=== PATIENT | male | born 1950 | race Caucasian/White ===

== ENCOUNTER 2020-02-12 05:10 | Emergency (ER) | payer MEDICARE, SELFPAY ==
[2020-02-12 05:15] VITALS: BP 154/71; PULSE 78; RESP 18; TEMP 36.4; O2SAT 99
[2020-02-12] MEDS: ONDANSETRON INJ 4 MG/2 ML VIAL (05:26)
--- NOTE | 2020-02-12 05:28 | ECG_ITS ---
Measurements Intervals [place] Rate: 77 P: 71 GA: 155 QRS: 86 QRSD: 122 T: 78 QT: 413 QTc: 467 Interpretive Statements SINUS RHYTHM INTRAVENTRICULAR CONDUCTION DELAY DELAYED PRECORDIAL R/S TRANSITION BASELINE ARTIFACT- I, II, III, AVR, AVL, AVF, V1, V3-V6 BORDERLINE ECG Electronically Signed On 02-12-2020 7:11:34 CDT by Delroy Thomas D.O.
[2020-02-12] MEDS: MECLIZINE HCL 25 MG TABLET PO (05:36)
[2020-02-12] MEDS: SODIUM CHLORIDE 0.9% IV 1,000 ML 999 ML IV CONT (05:36)
--- NOTE | 2020-02-12 05:52 | ED.DIZZY ---
HPI - Dizziness General Chief Complaint: Dizziness Stated Complaint: dizzy Time Seen by Provider: 02/12/20 05:14 History of Present Illness HPI Narrative: Patient 69-year-old male who presents ER with dizziness. Began early in the evening and has progressed. Woke up recently and was clammy and nauseated. He has had some worsening of his dizziness whenever he will move his head or change positions. No sinus congestion/sore throat/cough. Has not had similar symptoms previously. No chest pain or chest pressure. No weakness in arm or leg. Patient was somewhat falling to his left when walking earlier this evening per . Related Data Home Medications Medication Instructions Recorded Confirmed lisinopril 20 1 tablet PO DAILY 10/09/19 10/09/19 mg-hydrochlorothiazide 25 mg tablet Allergies Allergy/AdvReac Type Severity Reaction Status Date / Time No Known Allergies Allergy Verified 11/25/19 10:16 Review of Systems Review of Systems: All systems reviewed & are unremarkable except as noted in HPI and below Constitutional: Constitutional: Denies chills, Denies fever(s) and Denies weakness ENT: Reports vertigo, Denies nasal congestion and Denies sore throat Gastrointestinal: Gastrointestinal: Denies abdominal pain, Reports nausea and Denies vomiting PMFSH Social History Social History (System 11/25/19 @ 10:16 by Romana Evans) Smoking packs per day: 1 Smoking cigarettes per day: 20.0 Years smoked: 40 Smoking pack-years: 40.00 Smoking status: Former smoker Tobacco type: cigarettes Second hand tobacco smoke exposure: Yes Smoking end date: 06/17/17 Alcohol intake: current Drinks per week: 18 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 HEAD: Normocephalic, atraumatic. EYES: PERRL and EOMI. left gaze nystagmus. ENT: Mucous membranes moist. No cerumen impaction, small amount of fluid behind TMs bilaterally. CHEST: Clear to auscultation. No respiratory distress. HEART: Regular rate and rhythm. No murmur heard. Normal peripheral pulses. EXTREMITIES: Normal range of motion. No edema. SKIN: Warm, dry, no rash. NEURO: Alert and oriented x3. Course Course Emergency Course: Patient ambulated with a guarded gait in the ER traveling approximately 30 feet. Reports he is feeling better. Dizziness fatigues with positional changes and does totally greta when laying still. Consistent with BPPV. Discussed treatment for home. Discussed he should not be driving. Discussed he should just be lying still at home and resting while his symptoms subside. Vital Signs Vital signs: Vital Signs Temperature 97.6 F 02/12/20 05:15 Pulse Rate 78 02/12/20 05:15 Respiratory Rate 18 02/12/20 05:15 Blood Pressure 154/71 H 02/12/20 05:15 Pulse Oximetry 99 02/12/20 05:15 Temperature 97.6 F 02/12/20 05:15 Pulse Rate 78 02/12/20 05:15 Respiratory Rate 18 02/12/20 05:15 Blood Pressure 154/71 H 02/12/20 05:15 Pulse Oximetry 99 02/12/20 05:15 Discharge Plan Discharge Clinical Impression: Benign paroxysmal positional vertigo Patient Disposition: Home, Self-Care Condition: Stable Instructions: Benign Paroxysmal Positional Vertigo (ED) Additional Instructions: Return to the ER if you fall, you have severe persistent dizziness that is not improving with medications, you lose consciousness, you have focal weakness or numbness to an arm or leg. Prescriptions: New meclizine 25 mg tablet 25 mg PO TID PRN (Reason: motion sickness) Qty: 14 RF: 0 diazepam [Valium] 2 mg tablet 2 mg PO BID PRN (Reason: dizziness) Qty: 6 RF: 0 No Action lisinopril-hydrochlorothiazide 20-25 mg tablet 1 tablet PO DAILY RF: 0 lisinopril-hydrochlorothiazide 20-25 mg tablet 1 tablet PO DAILY Qty: 90 RF: 0
[2020-02-12 07:06] VITALS: BP 148/87; PULSE 72; RESP 16; TEMP 36.7; O2SAT 98
== END 2020-02-12 07:07 | disposition home or self-care (01) ==
PROVIDERS: Emergency Provider Emergency Medicine
DX: H81.10 Benign paroxysmal vertigo, unspecified ear (principal); Z87.891 Personal history of nicotine dependence; I45.9 Conduction disorder, unspecified
CPT/HCPCS: 93005; 96361; 96374; 96375; 99284; A9270; J2405; J3360; J7030

== ENCOUNTER → 2020-03-31 13:49 | Outpatient (CLI) | payer MEDICARE, SELFPAY ==
--- NOTE | ~2020-03-31 | CT_ITS ---
EXAMINATION:CT lung screening DATE: 03/31/2020 14:06 INDICATION: Personal history of tobacco dependence. Smoker who quit 2 years ago with 40 pack year his tory. TECHNIQUE: Computed tomography (CT) of the chest was performed without intravenous contrast. Automate d exposure control and iterative reconstruction technique were employed. The dose-length product (DLP ) was 168.23 mGy-cm. COMPARISON: None. FINDINGS: There is mild emphysema. There is mild scarring in paraspinal right lower lobe. There is mi ld atelectasis bilaterally. A calcified left lung nodule and calcified left hilar lymph nodes are con sistent with old granulomatous disease. There are a few nodules scattered in the lungs measuring up t o 5 mm in right lower lobe. No pleural effusion. The heart size is normal. There are coronary artery calcifications. No pericardial effusion. There is diffuse hepatic steatosis. There is mild thoracic s pondylosis. IMPRESSION: 1. Lung-RADS category 2: Benign appearance or behavior. Continue annual screening with noncontrast lo w-dose chest CT in 12 months. Reviewed, dictated and finalized at [facility]. IMPRESSION: 1. Lung-RADS category 2: Benign appearance or behavior. Continue annual screeni ng with noncontrast low-dose chest CT in 12 months.
== END ==
PROVIDERS: Visit Provider Family Medicine
DX: Z12.2 Encounter for screening for malignant neoplasm of respiratory organs (principal); Z87.891 Personal history of nicotine dependence; C79.51 Secondary malignant neoplasm of bone
CPT/HCPCS: G0297

== ENCOUNTER 2020-05-11 06:42 | Outpatient (NON) | payer MEDICARE, SELFPAY ==
[2020-05-11 11:27] LABS: Influenza Control Positive
[2020-05-13 21:25] LABS: SARS-CoV-2 RNA PCR Negative
== END 2020-05-11 06:43 ==
LOC: ANHCOVIDDT 07:03
PROVIDERS: PCP Family Medicine; Visit Provider Family Medicine
DX: R50.9 Fever, unspecified (principal); Z20.828 Contact with and (suspected) exposure to other viral communicable diseases; R53.83 Other fatigue
CPT/HCPCS: 87635; 87804; C9803; U0003

== ENCOUNTER 2021-03-25 04:55 | Emergency (ER) | payer MEDICARE, SELFPAY ==
[2021-03-25 05:04] VITALS: BP 156/78; PULSE 71; RESP 14; TEMP 36.6; O2SAT 97
[2021-03-25] MEDS: SODIUM CHLORIDE 0.9% IV 1,000 ML 999 ML IV CONT (05:39)
[2021-03-25] MEDS: MECLIZINE HCL 25 MG TABLET PO (05:40)
[2021-03-25] MEDS: PROCHLORPERAZINE EDISYLATE 10 MG/2 ML VIAL IV PUSH (05:41)
[2021-03-25 05:48] LABS: Basophils Percent Auto 0.4 % (0.2-1.2); Eosinophils Absolute Auto 0.1 K/mm3 (0-0.3); Eosinophils Percent Auto 1.1 % (0-4.4); Hematocrit 37.8 % (42.0-52.0); Hemoglobin 12.7 g/dL (14.0-18.0); Immature Granulocyte Absolute 0.05 K/mm3 (0.00-0.031); Immature Granulocyte Percent A 0.9 % (0-0.5); Lymphocytes Absolute Auto 1.41 K/mm3 (0.9-3.2); Lymphocytes Percent Auto 25.4 % (18.3-44.2); Mean Corpuscular HGB Conc 33.6 g/dl (32-36); Mean Corpuscular Hemoglobin 31.4 pg (26-34); Mean Corpuscular Volume 93.6 fl (80-100); Mean Platelet Volume 10.1 fl (7.4-10.4); Monocytes Absolute Auto 0.6 K/mm3 (0.1-0.6); Monocytes Percent Auto 11.2 % (2.6-8.5); Neutrophils Absolute Auto 3.4 K/mm3 (1.3-6.7); Platelet Count Result 247 k/mm3 (150-375); Red Blood Count 4.04 M/mm3 (4.6-6.20); Red Cell Distribution Width 13.6 % (11.5-14.5); White Blood Count 5.6 K/mm3 (4.5-10.0)
--- NOTE | 2021-03-25 05:56 | ED.GENADULT ---
HPI - General Adult General Chief complaint: Dizziness Stated complaint: Dizzy, vomiting Time Seen by Provider: 03/25/21 05:14 History of Present Illness HPI narrative: Patient 70-year-old gentleman who presents the emergency department with chief complaint of dizziness. Patient reports he has had prior history of vertigo in the past and reports that this morning he got up and felt as though the room was spinning felt nauseated and vomited and had some loose stool earlier in the day. The patient states that currently he feels as though the room is still slightly spinning but does feel better as he is laying on the stretcher. Patient reports he still feels nauseated. Patient reports this feels similar to whenever he had vertigo in the past except that time he did not vomit. Patient denies chest pain denies syncope denies shortness of breath. Related Data Home Medications Medication Instructions Recorded Confirmed ibuprofen 800 mg tablet 800 mg PO Q6H 01/26/21 03/24/21 Allergies Allergy/AdvReac Type Severity Reaction Status Date / Time No Known Allergies Allergy Verified 03/24/21 09:33 Review of Systems Review of Systems: A 10 system review of systems was completed on the patient and is negative except for what is stated in the HPI. Nursing and ancillary documentation was reviewed. [facility] Past Medical History Medical History COPD (chronic obstructive pulmonary disease) GERD without esophagitis Hyperlipemia Hypertension Vertigo Surgical History Surgical History No pertinent past surgical history Family History Family History Other Hypertension Social History Social History Smoking packs per day: 1 Smoking cigarettes per day: 20.0 Years smoked: 40 Smoking pack-years: 40.00 Smoking status: Former smoker Tobacco type: cigarettes Second hand tobacco smoke exposure: Yes Smoking end date: 04/03/19 Alcohol intake: current Drinks per week: 18 Alcohol use details: beer 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 HEAD: Normocephalic, atraumatic. EYES: PERRLA and EOMI. ENT: Nares clear, no rhinorrhea or epistaxis. Mucous membranes moist. NECK: Supple. CHEST: Clear to auscultation. No respiratory distress. HEART: Regular rate and rhythm. No murmur heard. Normal peripheral pulses. ABDOMEN: Soft, nontender, nondistended, normal active bowel sounds. EXTREMITIES: Normal range of motion. No edema. SKIN: Warm, dry, no rash. NEURO: No focal deficits. Alert and oriented x3. PSYCH: Normal mood and affect. Course Vital Signs Vital signs: Vital Signs Temperature 36.6 C 03/25/21 05:04 Pulse Rate 71 03/25/21 05:04 Respiratory Rate 14 03/25/21 05:04 Blood Pressure 156/78 H 03/25/21 05:04 Pulse Oximetry 97 03/25/21 05:04 Temperature 36.6 C 03/25/21 05:04 Pulse Rate 71 03/25/21 05:04 Respiratory Rate 14 03/25/21 05:04 Blood Pressure 156/78 H 03/25/21 05:04 Pulse Oximetry 97 03/25/21 05:04 Medical Decision Making Vital Signs Vital Signs: Vital Signs Temperature 36.6 C 03/25/21 05:04 Pulse Rate 71 03/25/21 05:04 Respiratory Rate 14 03/25/21 05:04 Blood Pressure 156/78 H 03/25/21 05:04 Pulse Oximetry 97 03/25/21 05:04 Temperature 36.6 C 03/25/21 05:04 Pulse Rate 71 03/25/21 05:04 Respiratory Rate 14 03/25/21 05:04 Blood Pressure 156/78 H 03/25/21 05:04 Pulse Oximetry 97 03/25/21 05:04 Lab Data Result diagrams: 03/25/21 05:37 03/25/21 05:37 Labs: Lab Results 03/25/21 03/25/21 Range/U
[2021-03-25 06:08] LABS: Anion Gap 7 mmol/L (8-16); Blood Urea Nitrogen 20 mg/dL (9-20); Calcium 9.2 mg/dL (8.4-10.2); Carbon Dioxide 29 mmol/L (22-30); Chloride 105 mmol/L (98-107); Estimated CRCL calculation 79 ml/min; Estimated Glomerular Filt Rate > 60; Glucose 122 mg/dL (65-110); Potassium 3.8 mmol/L (3.4-5.0); Sodium 141 mmol/L (137-145)
[2021-03-25 06:37] VITALS: BP 143/76; PULSE 76; RESP 18; O2SAT 97
== END 2021-03-25 06:39 | disposition home or self-care (01) ==
LOC: ANHED 05:59
PROVIDERS: Emergency Provider Emergency Medicine; PCP Family Medicine
DX: H81.10 Benign paroxysmal vertigo, unspecified ear (principal); E78.5 Hyperlipidemia, unspecified; J44.9 Chronic obstructive pulmonary disease, unspecified; I10 Essential (primary) hypertension; Z87.891 Personal history of nicotine dependence
CPT/HCPCS: 36415; 80048; 85025; 96361; 96374; 99284; A9270; J0780; J7030

== ENCOUNTER 2021-09-08 01:23 | Day surgery (SDC) | payer MEDICARE, SELFPAY ==
[2021-09-04 09:04] VITALS: BMI 30.2
[2021-09-08 09:59] VITALS: BP 142/85; PULSE 83; RESP 18; TEMP 36.7; O2SAT 96; BMI 28.4
--- NOTE | 2021-09-08 10:04 | WPDANESEPPF ---
Anes - Initial Pre Proc Eval Procedure: Operation Date: 09/08/21 10:30 Proposed Procedures p Screening Colonoscopy - Emanuel Anand MD Date/Time: 09/08/21 10:04 Surgeon: Emanuel Anand MD Pre Op Diagnosis: neoplasm screening Patient Data Age: 70 Gender: M Height: 1.78 m Weight: 90 kg Last Vital Signs Temp 36.7 C 09/08/21 09:59 Pulse 83 09/08/21 09:59 Resp 18 09/08/21 09:59 BP 142/85 H 09/08/21 09:59 Pulse Ox 96 09/08/21 09:59 Allergies Allergy/AdvReac Type Severity Reaction Status Date / Time No Known Allergies Allergy Verified 09/04/21 09:02 Home Medications Medication Instructions Recorded Confirmed Type ibuprofen 800 mg tablet 800 mg PO Q6H 01/26/21 09/04/21 History albuterol sulfate 90 mcg/actuation 1 puff INHALATION Q4H PRN #6.7 gm 02/17/21 09/04/21 Rx aerosol inhaler fluticasone 100 mcg-salmeterol 50 1 inh INHALATION Q12H #60 ea 03/24/21 09/04/21 Rx mcg/dose blistr powdr for inhalation meclizine 25 mg PO TID PRN #30 tablet 03/25/21 09/04/21 Rx ondansetron 4 mg PO Q8H PRN #10 tablet 03/25/21 09/04/21 Rx atorvastatin 10 mg tablet 10 mg PO DAILY #90 tablet 08/21/21 09/04/21 Rx lisinopril 20 1 tablet PO DAILY #90 tablet 08/23/21 09/04/21 Rx mg-hydrochlorothiazide 25 mg tablet Patient hx anesthesia problems: none Family hx anesthesia problems: none Results Review: All pre-operative results and documents have been reviewed as part of the pre-operative evaluation. REPLACED BY [facility] Past Medical History Medical History COPD (chronic obstructive pulmonary disease) GERD without esophagitis Hyperlipemia Hypertension Vertigo Surgical History Surgical History No pertinent past surgical history Family History Family History Other Hypertension Social History Social History Smoking packs per day: 1 Smoking cigarettes per day: 20.0 Years smoked: 40 Smoking pack-years: 40.00 Smoking status: Former smoker Tobacco type: cigarettes Second hand tobacco smoke exposure: Yes Smoking end date: 04/03/19 Alcohol intake: current Drinks per week: 12 Alcohol use details: beer Substance use: never Substance use type: does not use Living arrangements: with family 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 Informed Consent: The patient's anesthetic plan and its attendant risks and benefits were discussed with the patient/family/POA. Questions were solicited and answers provided to the satisfaction of the patient/family/POA.
--- NOTE | 2021-09-08 10:11 | WPDGICN ---
Assessment and Plan Assessment and plan (1) Encounter for screening colonoscopy: Code(s): Z12.11 - Encounter for screening for malignant neoplasm of colon Status: Acute Assessment and Plan: patient presents for screening colonoscopy. He appears to be at average risk for colon polyps. Further recommendations will be given after endoscopy. GI Consult Note Consult date/time: 09/08/21 10:11 HPI: Thomas Eisenberg is a 70 year old male Presents for screening colonoscopy. Patient's current weight appetite bowel movements are normal. He denies abdominal pain. He has had no bleeding. Patient's last colonoscopy 10 years [address] performed [address] Dr[address] Meyers was reported to show hemorrhoids. Patient denies any significant family history of colon polyps nor cancer. Review of Systems Review of Systems: All systems reviewed & are unremarkable except as noted in HPI and below PMFSH Past Medical History Medical History COPD (chronic obstructive pulmonary disease) GERD without esophagitis Hyperlipemia Hypertension Vertigo Surgical History Surgical History No pertinent past surgical history Family History Family History Other Hypertension Social History Social History Smoking packs per day: 1 Smoking cigarettes per day: 20.0 Years smoked: 40 Smoking pack-years: 40.00 Smoking status: Former smoker Tobacco type: cigarettes Second hand tobacco smoke exposure: Yes Smoking end date: 04/03/19 Alcohol intake: current Drinks per week: 12 Alcohol use details: beer Substance use: never Substance use type: does not use Living arrangements: with family 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 Gender identity (if verbalized by the patient): Male Spiritual care concerns: No Meds Home Medications and Allergies Home Medications Medication Instructions Recorded Confirmed Type ibuprofen 800 mg tablet 800 mg PO Q6H 01/26/21 09/04/21 History albuterol sulfate 90 mcg/actuation 1 puff INHALATION Q4H PRN #6.7 gm 02/17/21 09/04/21 Rx aerosol inhaler fluticasone 100 mcg-salmeterol 50 1 inh INHALATION Q12H #60 ea 03/24/21 09/04/21 Rx mcg/dose blistr powdr for inhalation meclizine 25 mg PO TID PRN #30 tablet 03/25/21 09/04/21 Rx ondansetron 4 mg PO Q8H PRN #10 tablet 03/25/21 09/04/21 Rx atorvastatin 10 mg tablet 10 mg PO DAILY #90 tablet 08/21/21 09/04/21 Rx lisinopril 20 1 tablet PO DAILY #90 tablet 08/23/21 09/04/21 Rx mg-hydrochlorothiazide 25 mg tablet Allergies Allergy/AdvReac Type Severity Reaction Status Date / Time No Known Allergies Allergy Verified 09/04/21 09:02 Vital Signs Vital Signs - 24 hr 09/08/21 09:59 Temperature 98.1 F Pulse Rate 83 Respiratory Rate 18 Blood Pressure 142/85 H Pulse Oximetry 96 Exam Narrative: Physical exam reveals patient to be alert. Vital signs stable. HEENT exam is unremarkable. Patient is anicteric. Lungs are clear to auscultation and percussion. Heart is without murmur or extra sounds. Abdominal exam bowel sounds are present soft nontender with no organomegaly. Digital external rectal exam is normal
[2021-09-08] MEDS: LACTATED RINGERS 1,000 ML 150 ML IV CONT (10:14)
[2021-09-08 11:01] VITALS: BP 104/67; PULSE 81; RESP 20; O2SAT 97
[2021-09-08 11:11] VITALS: BP 108/73; PULSE 78; RESP 22; O2SAT 98
[2021-09-08 11:21] VITALS: BP 121/75; PULSE 67; RESP 21; O2SAT 100
== END 2021-09-08 11:27 | disposition home or self-care (01) ==
PROVIDERS: PCP Family Medicine; Visit Provider Internal Medicine Gastroenterology
PROC: 0DJD8ZZ Inspection of Lower Intestinal Tract, Via Natural or Artificial Opening Endoscopic (ICD-10-PCS; CPT 45378; principal; 2021-09-08 10:30)
DX: Z12.11 Encounter for screening for malignant neoplasm of colon (principal); K64.8 Other hemorrhoids; K57.30 Diverticulosis of large intestine without perforation or abscess without bleeding; J44.9 Chronic obstructive pulmonary disease, unspecified; K21.9 Gastro-esophageal reflux disease without esophagitis; I10 Essential (primary) hypertension; E78.5 Hyperlipidemia, unspecified; Z87.891 Personal history of nicotine dependence; Z79.51 Long term (current) use of inhaled steroids
CPT/HCPCS: G0121; J2704; J7120

== ENCOUNTER 2021-09-12 17:54 | Emergency (ER) | payer MEDICARE, SELFPAY ==
[2021-09-12] VITALS (21 sets, daily range): BP systolic 101–142; BP diastolic 64–94; PULSE 84–108; RESP 16–18; TEMP 36.4; O2SAT 93–97
--- NOTE | ~2021-09-12 | CT_ITS ---
EXAMINATION: CT abdomen pelvis w con DATE: 09/12/2021 19:57 INDICATION: Abdominal pain, nausea, vomiting, diarrhea started today TECHNIQUE: Computed tomography (CT) of the abdomen and pelvis was performed with 100 CC Omnipaque 350 intravenous contrast. Automated exposure control and iterative reconstruction technique were employe d. Exam dose: 730.94 mGy-cm total exam DLP. COMPARISON: None. FINDINGS: The lung bases are clear of infiltrate or consolidation. Normal heart size. Coronary artery calcification. No pericardial or pleural effusion. Diffuse hepatic steatosis. No hepatic, splenic, pancreatic, adrenal space-occupying mass lesion. No b ile duct or pancreatic duct dilatation. An 11 mm posterior upper pole left renal cyst Approximately 11.5 x 14 mm hypoenhancing exophytic lesion with attenuation of 82 Hounsfield units dwain ng the medial aspect of the mid right kidney. Similar approximately 2 cm hypoenhancing exophytic mass with attenuation of 58 Hounsfield units along the medial aspect of the lower pole of the right kidne y. Pinpoint nonobstructing lower pole renal calculus. There is atherosclerotic calcification of the abdominal aorta and branches but no abdominal aortic an eurysm. No intraperitoneal or retroperitoneal or pelvic mass lesion or adenopathy or ascites. Prostate enlargement and numerous prostate calcifications. There is mild to moderate diffuse thickeni ng of the urinary bladder wall. Diverticulosis of left and right colon; no CT evidence of diverticulitis. Normal appendix. No bowel obstruction, bowel wall thickening, pneumatosis or intraperitoneal free air. Scattered small bowel and colonic fluid levels, consistent with clinical complaint of diarrhea, possi prisca due to enterocolitis or mild adynamic ileus. Diffuse idiopathic skeletal hyperostosis of the thoracic spine. Moderate degenerative disc disease at L5-S1. No suspicious osteolytic or osteoblastic lesions are noted. IMPRESSION: Scattered small and large bowel fluid levels, which may be due to enterocolitis or mild a dynamic ileus Diverticulosis of the colon; no CT evidence of diverticulitis Normal appendix Indeterminate circumscribed exophytic 11.5 x 14 and 2 cm lesions of right kidney Similar approximately 17 mm indeterminate hypoenhancing lesion of the medial mid left kidney, with at tenuation of approximately 67 Hounsfield units 10 mm hypoenhancing lesion of the lower pole left kidney Consider MR imaging of the kidneys or follow-up CT renal imaging in 6 months Pinpoint nonobstructing lower pole right renal calculus No ureteral calculus or hydroureteronephrosis Hepatic steatosis Reviewed, dictated and finalized at [facility]. Reviewed, dictated and finalized at [facility]. IMPRESSION: Scattered small and large bowel fluid levels, which may be due to e nterocolitis or mild adynamic ileus Diverticulosis of the colon; no CT evidence of diverticulitis Normal appendix Indeterminate circumscribed exophytic 11.5 x 14 and 2 cm lesions of right kidne y Similar approximately 17 mm indeterminate hypoenhancing lesion of the medial mi d left kidney, with attenuation of approximately 67 Hounsfield units 10 mm hypoenhancing lesion of the lower pole left kidney Consider MR imaging of the kidneys or follow-up CT renal imaging in 6 months Pinpoint nonobstructing lower pole right renal calculus No ureteral calculus or hydroureteronephrosis Hepatic steatosis
[2021-09-12 18:17] LABS: Basophils Percent Auto 0.4 % (0.2-1.2); Eosinophils Percent Auto 0.2 % (0-4.4); Hematocrit 41.9 % (42.0-52.0); Hemoglobin 14.2 g/dL (14.0-18.0); Immature Granulocyte Absolute 0.05 K/mm3 (0.00-0.031); Immature Granulocyte Percent A 0.5 % (0-0.5); Lymphocytes Absolute Auto 0.86 K/mm3 (0.9-3.2); Lymphocytes Percent Auto 8.4 % (18.3-44.2); Mean Corpuscular HGB Conc 33.9 g/dl (32-36); Mean Corpuscular Hemoglobin 32.2 pg (26-34); Mean Platelet Volume 10.1 fl (7.4-10.4); Monocytes Absolute Auto 0.7 K/mm3 (0.1-0.6); Monocytes Percent Auto 6.8 % (2.6-8.5); Neutrophils Absolute Auto 8.6 K/mm3 (1.3-6.7); Neutrophils Percent Auto 83.7 % (45.5-73.1); Platelet Count Result 261 k/mm3 (150-375); Red Blood Count 4.41 M/mm3 (4.6-6.20); Red Cell Distribution Width 13.9 % (11.5-14.5); White Blood Count 10.3 K/mm3 (4.5-10.0)
[2021-09-12 18:51] LABS: Appearance Urine Clear (Clear); Bilirubin Urine 1+ (Negative); Blood Urine Negative (Negative); Color Urine Yellow (Yellow); Glucose Urine UA Negative (Negative); Ketones Urine Trace mg/dL (Negative); Leukocyte Esterase Ur Negative LEU/UL (Negative); Nitrate Urine Negative (Negative); Protein Urine 1+ mg/dL (Negative); Specific Grav Ur >= 1.030 (1.001-1.035); Urobilinogen Urine 0.2 mg/dL (<2.0); pH Urine 5.5 (5.0-9.0)
[2021-09-12 18:59] LABS: Alanine Aminotransferase 28 U/L (4-50); Albumin Level 4.4 g/dL (3.5-5.1); Alkaline Phosphatase 86 U/L (38-126); Anion Gap 9 mmol/L (8-16); Aspartate Amino Transferase 33 U/L (17-59); Bilirubin,Total 0.8 mg/dL (0.2-1.3); Blood Urea Nitrogen 31 mg/dL (9-20); Calcium 8.2 mg/dL (8.4-10.2); Carbon Dioxide 24 mmol/L (22-30); Chloride 102 mmol/L (98-107); Estimated CRCL calculation 64 ml/min; Estimated Glomerular Filt Rate > 60; Glucose 117 mg/dL (65-110); Lipase 40 U/L (23-300); Potassium 3.6 mmol/L (3.4-5.0); Sodium 135 mmol/L (137-145)
--- NOTE | 2021-09-12 18:59 | ED.NAVMDI ---
HPI - Nausea/Vomiting/Diarrhea General Chief complaint: Nausea/Vomiting/Diarrhea <Lakeshia Phan PA-C - Last Filed: 09/13/21 01:34> Stated complaint: vomiting, diarrhea <CECILIO Sagastume Last Filed: 09/13/21 01:34> Time Seen by Provider: 09/12/21 18:38 <Lakeshia Phan PA-C - Last Filed: 09/13/21 01:34> Source: patient <CECILIO Sagastume Last Filed: 09/13/21 01:34> Mode of arrival: ambulatory <CECILIO Sagastume Last Filed: 09/13/21 01:34> Limitations: no limitations <CECILIO Sagastume Last Filed: 09/13/21 01:34> History of Present Illness HPI Narrative: Patient is a 70-year-old male who presents to the ED with report of nausea, vomiting, diarrhea. Patient reports he cooked ribs last night at home around 8 PM and does not think they were cooked all the way through. Around 4 AM this morning, he developed nausea and vomiting and has since had several episodes, in addition to frequent diarrhea. He states he has been unable to keep any fluid down. He has not tried eating today. He also reports having abdominal bloating and distension and mild oliguria, but denies any fevers, chills, hematemesis, rectal bleeding, chest pain, SOB, dysuria, hematuria. Patient had a colonoscopy on Saturday. He states he has been feeling well since then until these sx's began. <Lakeshia Phan PA-C - Last Filed: 09/13/21 01:34> Related Data Home medications: Home Medications Medication Instructions Recorded Confirmed ibuprofen 800 mg tablet 800 mg PO Q6H 01/26/21 09/04/21 <CECILIO Sagastume Last Filed: 09/13/21 01:34> Allergies/Adverse reactions: Allergies Allergy/AdvReac Type Severity Reaction Status Date / Time No Known Allergies Allergy Verified 09/04/21 09:02 <CECILIO Sagastume Last Filed: 09/13/21 01:34> Review of Systems Review of Systems: CONSTITUTIONAL: Denies fever, chills, or sweats. CARDIOVASCULAR: Denies chest pain. RESPIRATORY: Denies dyspnea. GASTROINTESTINAL: Reports abdominal pain/distension/bloating, nausea, vomiting, and diarrhea. Denies hematemesis, rectal bleeding. GENITOURINARY: Reports oliguria. Denies dysuria or hematuria. MUSCULOSKELETAL: Denies back pain, joint pain, or myalgia. NEUROLOGIC: Denies headache, numbness, or weakness. <Lakeshia Phan PA-C - Last Filed: 09/13/21 01:34> All systems reviewed & are unremarkable except as noted in HPI and below <Lakeshia Phan PA-C - Last Filed: 09/13/21 01:34> [facility] Past Medical History Medical History: Medical History COPD (chronic obstructive pulmonary disease) GERD without esophagitis Hyperlipemia Hypertension Vertigo <Lakeshia hPan PA-C - Last Filed: 09/13/21 01:34> Surgical History Surgical History: Surgical History No pertinent past surgical history <Lakeshia Phan PA-C - Last Filed: 09/13/21 01:34> Family History Family History: Family History Other Hypertension <Lakeshia Phan PA-C - Last Filed: 09/13/21 01:34> Social History Social History: Social History Smoking packs per day: 1 Smoking cigarettes per day: 20.0 Years smoked: 40 Smoking pack-years: 40.00 Smoking status: Former smoker Tobacco type: cigarettes Second hand tobacco smoke exposure: Yes Smoking end date: 04/03/19 Alcohol intake: current Drinks per week: 12 Alcohol use details: beer Substance use: never Substance use type: does not use 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
[2021-09-12 19:48] LABS: Add Urine Microscopic? YES
[2021-09-12 19:49] LABS: Squamous Epithelial Cell Urine Rare /hpf (Few)
[2021-09-12 19:50] LABS: Mucus Urine Rare /lpf
[2021-09-12] MEDS: SODIUM CHLORIDE 0.9% IV 1,000 ML 999 ML IV CONT ×2 (19:58→21:47)
[2021-09-12] MEDS: ONDANSETRON INJ 4 MG/2 ML VIAL IV PUSH (19:58)
== END 2021-09-12 22:49 | disposition home or self-care (01) ==
PROVIDERS: Emergency Provider Emergency Medicine; PCP Family Medicine
DX: K52.9 Noninfective gastroenteritis and colitis, unspecified (principal); J44.9 Chronic obstructive pulmonary disease, unspecified; K21.9 Gastro-esophageal reflux disease without esophagitis; E78.5 Hyperlipidemia, unspecified; I10 Essential (primary) hypertension; Z87.891 Personal history of nicotine dependence; K57.90 Diverticulosis of intestine, part unspecified, without perforation or abscess without bleeding; K76.0 Fatty (change of) liver, not elsewhere classified; N28.9 Disorder of kidney and ureter, unspecified
CPT/HCPCS: 36415; 74177; 80053; 81001; 83690; 85025; 96361; 96365; 96375; 99284; J0131; J2405; J7030; Q9967

== ENCOUNTER 2022-04-03 09:21 | Outpatient (CLI) | payer MEDICARE, SELFPAY ==
[2022-04-03 19:55] LABS: Basophils Percent Auto 0.5 % (0.2-1.2); Eosinophils Absolute Auto 0.1 K/mm3 (0-0.3); Eosinophils Percent Auto 1.5 % (0-4.4); Hematocrit 38.9 % (42.0-52.0); Hemoglobin 12.3 g/dL (14.0-18.0); Immature Granulocyte Absolute 0.08 K/mm3 (0.00-0.031); Immature Granulocyte Percent A 0.9 % (0-0.5); Lymphocytes Absolute Auto 2.52 K/mm3 (0.9-3.2); Lymphocytes Percent Auto 29.6 % (18.3-44.2); Mean Corpuscular HGB Conc 31.6 g/dl (32-36); Mean Corpuscular Hemoglobin 31.4 pg (26-34); Mean Corpuscular Volume 99.2 fl (80-100); Monocytes Percent Auto 11.4 % (2.6-8.5); Neutrophils Absolute Auto 4.8 K/mm3 (1.3-6.7); Neutrophils Percent Auto 56.1 % (45.5-73.1); Platelet Count Result 259 k/mm3 (150-375); Red Blood Count 3.92 M/mm3 (4.6-6.20); Red Cell Distribution Width 13.8 % (11.5-14.5); White Blood Count 8.5 K/mm3 (4.5-10.0)
[2022-04-03 20:27] LABS: LDL Cholesterol Direct 82 mg/dL
[2022-04-03 20:43] LABS: Prostate Specific Antigen 0.3 ng/mL (< OR = 4.0)
[2022-04-03 21:22] LABS: Alanine Aminotransferase 26 U/L (6-50); Albumin Level 4.3 g/dL (3.5-5.1); Alkaline Phosphatase 84 U/L (38-126); Anion Gap 11 mmol/L (8-16); Aspartate Amino Transferase 28 U/L (17-59); Bilirubin,Total 0.4 mg/dL (0.2-1.3); Blood Urea Nitrogen 22 mg/dL (9-20); Calcium 9.2 mg/dL (8.4-10.2); Carbon Dioxide 27 mmol/L (22-30); Chloride 100 mmol/L (98-107); Cholesterol 161 mg/dL (0-200); Estimated Glomerular Filt Rate > 60; Glucose 93 mg/dL (65-110); HDL Direct 35 mg/dL; Potassium 3.6 mmol/L (3.4-5.0); Sodium 138 mmol/L (137-145); Triglycerides 198 mg/dL (<150)
== END 2022-04-03 09:22 | disposition home or self-care (01) ==
LOC: ANHGOSHLAB 09:22
PROVIDERS: PCP Family Medicine; Visit Provider Nurse Practitioner Family
DX: E78.5 Hyperlipidemia, unspecified (principal); I10 Essential (primary) hypertension; Z12.5 Encounter for screening for malignant neoplasm of prostate
CPT/HCPCS: 36415; 80053; 80061; 84153; 84443; 85025; G0103

== ENCOUNTER 2022-11-20 11:11 | Emergency (ER) | payer MEDICARE, SELFPAY ==
[2022-11-20] VITALS (13 sets, daily range): BP systolic 111–153; BP diastolic 65–81; PULSE 65–78; RESP 13–18; TEMP 36.4; O2SAT 94–98
--- NOTE | ~2022-11-20 | CT_ITS ---
CT head without contrast Indication: Vertigo Technique: Serial scans were obtained through the brain without the administration of contrast. Dose reduction technique was used on this scan by utilizing automated exposure control and iterative recon struction technique. The dose-length product (DLP) was 605.33 mGy-cm. Findings: There is no evidence of intracranial hemorrhage, mass lesion, or acute infarct. The ventri cles and subarachnoid spaces are dilated, consistent with minimal atrophy. Low attenuation regions a re seen within the periventricular white matter bilaterally, likely representing changes from chronic microvascular ischemic disease. There is no evidence of edema, mass effect or midline shift. The v isualized paranasal sinuses and mastoid air cells are clear. Impression: No intracranial hemorrhage, mass, or acute infarct. Atrophy and chronic white matter changes, as above. Reviewed, dictated and finalized at location . Impression: No intracranial hemorrhage, mass, or acute infarct. Atrophy and chronic white matter changes, as above.
--- NOTE | 2022-11-20 11:24 | ECG_ITS ---
Measurements Intervals [place] Rate: 71 P: 45 TX: 176 QRS: 78 QRSD: 113 T: 65 QT: 389 QTc: 423 Interpretive Statements SINUS RHYTHM INCOMPLETE RIGHT BUNDLE BRANCH BLOCK [90+ ms QRS DURATION, TERMINAL R IN V1/V2, 40+ ms S IN I/aVL/V4/V5/V6] COMPARED TO ECG 02/12/2020 05:26:35 INCOMPLETE RIGHT BUNDLE-BRANCH BLOCK NOW PRESENT Electronically Signed On 11-20-2022 14:16:34 CDT by Rome Hopkins M.D.
[2022-11-20 12:10] LABS: Basophils Percent Auto 0.3 % (0.2-1.2); Eosinophils Percent Auto 0.5 % (0-4.4); Hematocrit 37.1 % (42.0-52.0); Hemoglobin 12.6 g/dL (14.0-18.0); Immature Granulocyte Absolute 0.06 K/mm3 (0.00-0.031); Lymphocytes Absolute Auto 0.91 K/mm3 (0.9-3.2); Lymphocytes Percent Auto 14.8 % (18.3-44.2); Mean Corpuscular Hemoglobin 32.1 pg (26-34); Mean Corpuscular Volume 94.6 fl (80-100); Mean Platelet Volume 10.3 fl (7.4-10.4); Monocytes Absolute Auto 0.4 K/mm3 (0.1-0.6); Monocytes Percent Auto 5.7 % (2.6-8.5); Neutrophils Absolute Auto 4.8 K/mm3 (1.3-6.7); Neutrophils Percent Auto 77.7 % (45.5-73.1); Platelet Count Result 220 k/mm3 (150-375); Red Blood Count 3.92 M/mm3 (4.6-6.20); Red Cell Distribution Width 13.6 % (11.5-14.5); White Blood Count 6.2 K/mm3 (4.5-10.0)
[2022-11-20 12:34] LABS: Alanine Aminotransferase 28 U/L (6-50); Albumin Level 4.4 g/dL (3.5-5.1); Alkaline Phosphatase 70 U/L (38-126); Anion Gap 5 mmol/L (8-16); Aspartate Amino Transferase 35 U/L (17-59); Bilirubin,Total 0.7 mg/dL (0.2-1.3); Blood Urea Nitrogen 20 mg/dL (9-20); Calcium 9.1 mg/dL (8.4-10.2); Carbon Dioxide 30 mmol/L (22-30); Chloride 101 mmol/L (98-107); Estimated CRCL calculation 89 ml/min; Estimated Glomerular Filt Rate > 60; Glucose 109 mg/dL (65-110); Potassium 3.8 mmol/L (3.4-5.0); Sodium 136 mmol/L (137-145)
--- NOTE | 2022-11-20 14:15 | ED.GENADULT ---
HPI - General Adult General Chief complaint: Dizziness Stated complaint: DIZZY/ n/v Time Seen by Provider: 11/20/22 11:55 History of Present Illness HPI narrative: 72-year-old male history of vertigo presented the ED for evaluation of recurrent vertigo. Patient states the symptoms were bothering him last night. Patient did attempt to take a meclizine this morning but did have some emesis and states he had no improvement of his symptoms from the meclizine. Patient denies any falls or injuries. Patient did have some nausea and vomiting but denies any abdominal pain constipation or diarrhea. Patient reports that the vertigo was worsened when lying flat. Patient states that the vertigo does improve with position change Related Data Allergies Allergy/AdvReac Type Severity Reaction Status Date / Time No Known Allergies Allergy Verified 11/20/22 11:16 Review of Systems Review of Systems: All systems reviewed & are unremarkable except as noted in HPI and below PMFSH Past Medical History Medical History COPD (chronic obstructive pulmonary disease) GERD without esophagitis Hepatic steatosis Hyperlipemia Hypertension Vertigo Surgical History Surgical History No pertinent past surgical history Family History Family History Other Hypertension Social History Social History Social History: Jeffry is , 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 Smoking packs per day: 1 Smoking cigarettes per day: 20.0 Years smoked: 40 Smoking pack-years: 40.00 Smoking status: Former smoker Tobacco type: cigarettes Second hand tobacco smoke exposure: Yes Smoking end date: 04/03/19 Alcohol intake: current Drinks per week: 12 Alcohol use details: beer Substance use: never Substance use type: does not use Lack of Transportation: No Lack of Food: Sometimes True Current Housing: I Have Housing Concerned About Future Housing: No Difficulty Paying Gas/Electric Bills: No Difficulty Paying for Meds: No Currently Unemployed: No Education: High School Diploma/GED Difficulty w/ Childcare or Family Care: No Living arrangements: with family Occupation/Education: occupation 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 HEAD: normocephalic, atraumatic. EYES: PERRLA/EOMI, conjunctivae clear. Sustained nystagmus when looking to the right NOSE: Normal no drainage EARS:TMS clear with good light reflex. NECK: Supple. No adenopathy, no masses. RESPIRATORY: Airway patent, respirations nonlabored. Clear to auscultation bilaterally, no rales, rhonchi, wheezing. CARDIOVASCULAR: Regular rate and rhythm without murmurs rubs or gallops. ABDOMINAL: Soft, nontender, nondistended, normal bowel sounds MUSCULOSKELETAL: Moves all extremities. Strength/ROM intact, No edema, No calf tenderness. NEURO: Alert. Cranial nerves II through XII intact. Grossly intact SKIN: Warm, dry. Normal Color Course Course Emergency Course: 72-year-old male presented the ED for evaluation of vertigo. Head CT was negative. Patient was treated with IV Valium and meclizine. Patient and family were updated on the results of the work-up and plan for treatment. All questions and concerns were addressed after this point. Patient was afebrile with no leukocytosis patient's hemoglobin was 12.6. No significant abnormalities on the patient's CMP. Patient was treated
[2022-11-20] MEDS: MECLIZINE HCL 25 MG TABLET PO (14:21)
[2022-11-20] MEDS: diazePAM INJ (*CRX) 10 MG/2 ML SYRINGE 2.5 MG IV PUSH (14:22)
--- NOTE | 2022-11-20 15:19 | PC.NURSE ---
Attempted to ambulate patient. patient stood up and was extremely dizzy and unsteady on his feet
--- NOTE | 2022-11-20 16:08 | PC.NURSE ---
patient able to ambulate to the restroom. patient states he is much less dizzy and able to walk with steady gate. provider aware
== END 2022-11-20 16:57 | disposition home or self-care (01) ==
PROVIDERS: Emergency Medicine; Emergency Provider Emergency Medicine; PCP Family Medicine
DX: R42 Dizziness and giddiness (principal); J44.9 Chronic obstructive pulmonary disease, unspecified; E78.5 Hyperlipidemia, unspecified; I10 Essential (primary) hypertension; K21.9 Gastro-esophageal reflux disease without esophagitis; Z87.891 Personal history of nicotine dependence; I45.10 Unspecified right bundle-branch block
CPT/HCPCS: 36415; 70450; 80053; 85025; 93005; 96374; 99284; A9270; J3360

== ENCOUNTER 2023-06-19 11:33 | Outpatient (CLI) | payer MEDICARE, SELFPAY ==
[2023-06-19 20:06] LABS: Basophils Percent Auto 0.5 % (0.2-1.2); Eosinophils Absolute Auto 0.2 K/mm3 (0-0.3); Eosinophils Percent Auto 1.8 % (0-4.4); Hematocrit 41.3 % (42.0-52.0); Hemoglobin 13.2 g/dL (14.0-18.0); Immature Granulocyte Absolute 0.05 K/mm3 (0.00-0.031); Immature Granulocyte Percent A 0.6 % (0-0.5); Lymphocytes Absolute Auto 2.49 K/mm3 (0.9-3.2); Lymphocytes Percent Auto 29.8 % (18.3-44.2); Mean Corpuscular Hemoglobin 30.9 pg (26-34); Mean Corpuscular Volume 96.7 fl (80-100); Mean Platelet Volume 10.2 fl (7.4-10.4); Monocytes Absolute Auto 0.9 K/mm3 (0.1-0.6); Monocytes Percent Auto 10.8 % (2.6-8.5); Neutrophils Absolute Auto 4.7 K/mm3 (1.3-6.7); Neutrophils Percent Auto 56.5 % (45.5-73.1); Platelet Count Result 228 k/mm3 (150-375); Red Blood Count 4.27 M/mm3 (4.6-6.20); Red Cell Distribution Width 14.1 % (11.5-14.5); White Blood Count 8.4 K/mm3 (4.5-10.0)
[2023-06-19 21:17] LABS: Alanine Aminotransferase 24 U/L (6-50); Albumin Level 4.4 g/dL (3.5-5.1); Alkaline Phosphatase 85 U/L (38-126); Anion Gap 11 mmol/L (8-16); Aspartate Amino Transferase 42 U/L (17-59); Bilirubin,Total 0.6 mg/dL (0.2-1.3); Blood Urea Nitrogen 19 mg/dL (9-20); Calcium 9.2 mg/dL (8.4-10.2); Carbon Dioxide 27 mmol/L (22-30); Chloride 99 mmol/L (98-107); Estimated Glomerular Filt Rate > 60; Glucose 77 mg/dL (65-110); Potassium 3.6 mmol/L (3.4-5.0); Sodium 137 mmol/L (137-145)
[2023-06-22 08:33] LABS: Vitamin D 1,25 (OH)2 Total 47 pg/mL (18-72); Vitamin D2 1,25 (OH)2 <8 pg/mL; Vitamin D3 1,25 (OH)2 47 pg/mL
== END 2023-06-19 11:34 | disposition home or self-care (01) ==
LOC: ANHGOSHLAB 11:34
PROVIDERS: PCP Family Medicine; Visit Provider Nurse Practitioner Family
DX: E55.9 Vitamin D deficiency, unspecified (principal); I10 Essential (primary) hypertension
CPT/HCPCS: 36415; 80053; 82652; 85025

== ENCOUNTER 2023-07-28 07:45 | Emergency (ER) | payer MEDICARE, SELFPAY ==
--- NOTE | ~2023-07-28 | XR_ITS ---
EXAMINATION: XR ribs LT 2V w CXR 2V DATE: 07/28/2023 08:40 INDICATION: Left lower chest wall pain. Cough. TECHNIQUE: Frontal and lateral views of the chest and 2 views on 4 radiographs of the left ribs were obtained. COMPARISON: CT abdomen and pelvis 09/12/2021, chest CT 03/31/2020 FINDINGS: CHEST TWO VIEWS: Calcified pulmonary nodules are consistent with old granulomatous disease. There is mild atelectasis in left midlung zone. No pleural effusion or pneumothorax. Heart size is normal. LEFT RIBS: There are old healed left rib fractures. IMPRESSION: 1. No acute rib fracture. Reviewed, dictated and finalized at location A. ATICS PROFESSOR IMPRESSION: 1. No acute rib fracture.
--- NOTE | ~2023-07-28 | CT_ITS ---
EXAMINATION: CT abdomen pelvis w con DATE: 07/28/2023 09:32 INDICATION: Left upper quadrant abdominal pain. TECHNIQUE: Computed tomography (CT) of the abdomen and pelvis was performed with 100 mL Omnipaque 350 intravenous contrast. Automated exposure control and iterative reconstruction technique were employe d. The dose-length product was 840.16 mGy-cm. COMPARISON: CT abdomen and pelvis 09/12/2021 FINDINGS: The visualized portions of the lung bases demonstrate mild atelectasis. There are centrilob ular nodules in the lower lobes, consistent with infection. No pleural effusion. The heart size is no rmal. There are coronary artery calcifications. No pericardial effusion. There is a stable 12 mm mass right hepatic lobe, likely benign. The gallbladder, spleen, pancreas, adrenal glands are normal. The re are masses in the kidneys measuring soft tissue attenuation measuring up to 2.6 cm on the right. T here is calcified atherosclerosis of the aorta and many of the other arteries. There is a right ingui nal hernia containing fat. There is diverticulosis of the colon without evidence of diverticulitis. T he appendix is normal. There are no pathologically enlarged lymph nodes. There is no free intraperito paradise fluid. There is severe lower lumbar spondylosis. IMPRESSION: 1. Bilateral kidney masses, which may be hemorrhagic cysts or less likely neoplasm(s). Abdomen MRI wi thout and with contrast is recommended. 2. Mild pneumonia in the lower lobes. Reviewed, dictated and finalized at location A. ET MAKER IMPRESSION: 1. Bilateral kidney masses, which may be hemorrhagic cysts or less likely neopl asm(s). Abdomen MRI without and with contrast is recommended. 2. Mild pneumonia in the lower lobes.
[2023-07-28 07:50] VITALS: BP 151/90; PULSE 73; RESP 18; TEMP 37.1; O2SAT 99
[2023-07-28 07:54] VITALS: BP 131/88; PULSE 75; RESP 18; O2SAT 98
[2023-07-28 08:02] VITALS: PULSE 69; O2SAT 98
[2023-07-28 09:01] VITALS: BP 132/69; PULSE 67; RESP 16; O2SAT 97
[2023-07-28 09:06] LABS: Basophils Percent Auto 0.3 % (0.2-1.2); Eosinophils Absolute Auto 0.1 K/mm3 (0-0.3); Eosinophils Percent Auto 1.7 % (0-4.4); Hemoglobin 12.6 g/dL (14.0-18.0); Immature Granulocyte Absolute 0.05 K/mm3 (0.00-0.031); Immature Granulocyte Percent A 0.6 % (0-0.5); Lymphocytes Absolute Auto 1.92 K/mm3 (0.9-3.2); Lymphocytes Percent Auto 24.5 % (18.3-44.2); Mean Corpuscular HGB Conc 33.2 g/dl (32-36); Mean Corpuscular Hemoglobin 31.2 pg (26-34); Mean Corpuscular Volume 94.1 fl (80-100); Mean Platelet Volume 9.5 fl (7.4-10.4); Monocytes Absolute Auto 0.9 K/mm3 (0.1-0.6); Monocytes Percent Auto 10.8 % (2.6-8.5); Neutrophils Absolute Auto 4.9 K/mm3 (1.3-6.7); Neutrophils Percent Auto 62.1 % (45.5-73.1); Platelet Count Result 238 k/mm3 (150-375); Red Blood Count 4.04 M/mm3 (4.6-6.20); Red Cell Distribution Width 13.6 % (11.5-14.5); White Blood Count 7.9 K/mm3 (4.5-10.0)
[2023-07-28 09:15] LABS: Alanine Aminotransferase 21 U/L (6-50); Albumin Level 4.1 g/dL (3.5-5.1); Alkaline Phosphatase 77 U/L (38-126); Anion Gap 8 mmol/L (8-16); Aspartate Amino Transferase 29 U/L (17-59); Bilirubin,Total 0.7 mg/dL (0.2-1.3); Blood Urea Nitrogen 18 mg/dL (9-20); Calcium 8.9 mg/dL (8.4-10.2); Carbon Dioxide 26 mmol/L (22-30); Chloride 101 mmol/L (98-107); Estimated CRCL calculation 76 ml/min; Estimated Glomerular Filt Rate > 60; Glucose 109 mg/dL (65-110); Lipase 72 U/L (23-300); Potassium 3.8 mmol/L (3.4-5.0); Sodium 135 mmol/L (137-145)
--- NOTE | 2023-07-28 10:41 | ED.SOB ---
HPI - SOB/Dyspnea General Chief Complaint: Shortness of Breath/Dyspnea Stated Complaint: SOB Time Seen by Provider: 07/28/23 08:03 History of Present Illness HPI Narrative: Patient is a 72-year-old male who presents ER with left-sided chest wall pain. Reports he has had a cold with a cough over last week. He has developed increased pain on left side when he coughs and feels like there is something moving. He has some pain in his upper abdomen as well. No urinary frequency urgency or dysuria. Cough is nonproductive. Reports he has some family that is sick with influenza. Related Data Allergies Allergy/AdvReac Type Severity Reaction Status Date / Time No Known Allergies Allergy Verified 07/28/23 08:02 Review of Systems Review of Systems: All systems reviewed & are unremarkable except as noted in HPI and below Constitutional: Constitutional: Reports no additional constitutional complaints ENT: Reports system reviewed and no additional complaints, except as documented Cardiovascular: Cardiovascular: Reports no additional cardiovascular complaints Respiratory: Respiratory: Reports cough, Denies dyspnea and Denies wheezing Gastrointestinal: Gastrointestinal: Reports abdominal pain, Denies diarrhea, Denies nausea and Denies vomiting PMFSH Past Medical History Medical History COPD (chronic obstructive pulmonary disease) GERD without esophagitis Hepatic steatosis Hyperlipemia Hypertension Vertigo Surgical History Surgical History No pertinent past surgical history Family History Family History Other Hypertension Social History Social History Social History: Jeffry is , 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 Smoking packs per day: 1 Smoking cigarettes per day: 20.0 Years smoked: 40 Smoking pack-years: 40.00 Smoking status: Former smoker Tobacco type: cigarettes Second hand tobacco smoke exposure: Yes Smoking end date: 04/03/19 Alcohol intake: current Drinks per week: 12 Alcohol use details: beer Substance use: never Substance use type: does not use Lack of Transportation: No Lack of Food: Sometimes True Current Housing: I Have Housing Concerned About Future Housing: No Difficulty Paying Gas/Electric Bills: No Difficulty Paying for Meds: No Currently Unemployed: No Education: High School Diploma/GED Difficulty w/ Childcare or Family Care: No Living arrangements: with family Occupation/Education: occupation 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 HEAD: Normocephalic, atraumatic. ENT: Mucous membranes moist. CHEST: Clear to auscultation. No respiratory distress. TTP lower chest wall left side over the ribs. HEART: Regular rate and rhythm. Normal peripheral pulses. ABDOMEN: Soft, TTP LUQ with guarding, nondistended. EXTREMITIES: Normal range of motion. No edema. SKIN: Warm, dry, no rash. NEURO: Alert and oriented x3. PSYCH: Normal mood and affect. Course Course Emergency Course: Patient resting comfortably. Informed results. Will place on broad-spectrum antibiotics given chronic lung disease and pneumonia. Vital Signs Vital signs: Vital Signs Temperature 98.7 F 07/28/23 07:50 Pulse Rate 73 07/28/23 07:50 Respiratory Rate 18 07/28/23 07:50 Blood Pressure 151/90 H 07/28/23 07:50 Pulse Oximetry 99 07/28/23 07:50 Temperature 97.6 F 07/28
[2023-07-28 11:06] VITALS: BP 117/65; PULSE 76; RESP 20; TEMP 36.4; O2SAT 98
== END 2023-07-28 11:08 | disposition home or self-care (01) ==
PROVIDERS: Emergency Provider Emergency Medicine; PCP Family Medicine
DX: J18.9 Pneumonia, unspecified organism (principal); R09.1 Pleurisy; J44.9 Chronic obstructive pulmonary disease, unspecified; E78.5 Hyperlipidemia, unspecified; I10 Essential (primary) hypertension; K21.9 Gastro-esophageal reflux disease without esophagitis; Z87.891 Personal history of nicotine dependence; N28.89 Other specified disorders of kidney and ureter
CPT/HCPCS: 36415; 71046; 71100; 74177; 80053; 83690; 85025; 99284; Q9967

== ENCOUNTER → 2023-08-07 11:06 | Outpatient (CLI) | payer MEDICARE, SELFPAY ==
--- NOTE | ~2023-08-07 | XR_ITS ---
Clinical Indication: Pneumonia PA and lateral views of the chest: Comparison: 07/28/2023 Findings: The lungs are clear, without evidence of focal consolidation or pleural effusion. Cardiome diastinal silhouette is within normal limits. Bones and soft tissues are unremarkable. Impression: Clear lungs. Reviewed, dictated and finalized at location . VERY ASSISTANT Impression: Clear lungs.
== END ==
PROVIDERS: PCP Family Medicine; Visit Provider Nurse Practitioner Family
DX: J18.9 Pneumonia, unspecified organism (principal)
CPT/HCPCS: 71046

== ENCOUNTER 2023-08-15 10:43 | Outpatient (CLI) | payer MEDICARE, SELFPAY ==
--- NOTE | ~2023-08-15 | MR_ITS ---
EXAMINATION: MR abdomen wo/w con DATE: 08/15/2023 11:43 INDICATION: Other specified disorders of kidney and ureter TECHNIQUE: Magnetic resonance imaging (MRI) of the abdomen was performed without and with 19 mL Multi yordan intravenous contrast. Sequences included coronal T2-weighted SS-FSE, coronal and axial FS 2D-F IESTA, axial STIR FSE, axial T2-weighted SS-FSE, axial T2-weighted FS SS-FSE, axial diffusion-weighte d SE, axial dual-echo T1-weighted FSPGR, and axial and coronal T1-weighted LAVA. Postcontrast axial T 1-weighted LAVA images were obtained in a time course. Postcontrast coronal T1-weighted LAVA images w ere obtained. COMPARISON: CT dated 07/18/2023 and 09/12/2021 FINDINGS: Heart size is normal. No pericardial or pleural effusion. Diffuse hepatic steatosis. There is an appr oximately 7 mm T2 hyperintense lesion in the posterior right hepatic lobe most clearly evident on the diffusion-weighted imaging corresponding subtle low-attenuation lesion on. The prior CT studies with interval stability favoring a benign etiology. Although limited by respiratory motion at the posteri or liver, there appears to be some subtle corresponding enhancement without evident washout on the po st contrast images and would favor a hemangioma. Gallbladder, spleen, pancreas and bilateral adrenal glands are normal. There are couple subcentimeter T2 hyperintense nonenhancing cysts at both the left and right kidneys. In additional there are a couple larger 2.4 cm and 1.5 cm mildly T1 hyperintense, T2 hypointense nonenhancing proteinaceous/hemorrhagic cysts at the right kidney. At the upper pole o f the left kidney there is an approximately 1.6 cm lesion which is generally T1 isointense and with a few tiny peripheral T2 hyperintense components. There is heterogeneous enhancement within the lesion on postcontrast imaging. Assessment of the morphology and enhancement whether associated with thin s eptations or more discrete soft tissue is limited by some motion artifact on the post contrast images precluding accurate Bosniak classification but nonetheless concerning for renal cell carcinoma. Visu alized portions of bowels are unremarkable. No pathologically enlarged abdominal or upper pelvic lymp hadenopathy. Bone marrow signal is normal throughout. IMPRESSION: 1. Indeterminate 1.6 cm likely complex cystic enhancing lesion at the lower pole of the left kidney c oncerning for renal cell carcinoma. Assessment of the enhancement pattern for classification by Bosni ak criteria to more accurately assess the degree of suspicion is however limited by small amount of m otion artifact. 2. No change since 2021 of a likely benign 7 mm lesion in the posterior right hepatic lobe most likel y representing a hemangioma. Reviewed, dictated and finalized at location L. P DEBURRER IMPRESSION: 1. Indeterminate 1.6 cm likely complex cystic enhancing lesion at the lower katiuska e of the left kidney concerning for renal cell carcinoma. Assessment of the enh ancement pattern for classification by Bosniak criteria to more accurately asse ss the degree of suspicion is however limited by small amount of motion artifac t. 2. No change since 2021 of a likely benign 7 mm lesion in the posterior right h epatic lobe most likely representing a hemangioma.
== END 2023-08-15 10:44 ==
LOC: GOSHIMG 10:44
PROVIDERS: PCP Nurse Practitioner Family; Visit Provider Nurse Practitioner Family
DX: N28.89 Other specified disorders of kidney and ureter (principal)
CPT/HCPCS: 74183; A9577

== ENCOUNTER 2024-01-27 14:32 | Outpatient (CLI) | payer MEDICARE, SELFPAY ==
--- NOTE | ~2024-01-27 | MR_ITS ---
EXAMINATION: MR abdomen wo/w con DATE: 01/27/2024 16:23 INDICATION: Neoplasm of uncertain behavior of left kidney. TECHNIQUE: Magnetic resonance imaging (MRI) of the abdomen was performed without and with 19 mL Multi Jessica intravenous contrast. COMPARISON: Abdomen MRI 08/15/2023, CT abdomen and pelvis 07/28/2023 FINDINGS: There is diffuse hepatic steatosis. There is an 8 mm cyst in the liver. The gallbladder, spleen, panc reas, and adrenal glands are normal. There are cysts and hemorrhagic cysts of the kidneys measuring u p to 2.4 cm on the right. There is a 15 mm cystic lesion in left kidney with multiple thin septations . There are no dilated loops of bowel. There are no pathologically enlarged lymph nodes. There is no free intraperitoneal fluid. IMPRESSION: 1. 15 mm Bosniak IIF cystic lesion in left kidney, stable from 07/28/2023. Abdomen MRI without and wit h contrast is recommended in 6 months. Reviewed, dictated and finalized at location A. IMPRESSION: 1. 15 mm Bosniak IIF cystic lesion in left kidney, stable from 07/28/2023. Abdom en MRI without and with contrast is recommended in 6 months.
[2024-01-27 17:08] LABS: Hematocrit 35.9 % (42.0-52.0); Hemoglobin 11.9 g/dL (14.0-18.0); Mean Corpuscular HGB Conc 33.1 g/dl (32-36); Mean Corpuscular Hemoglobin 31.6 pg (26-34); Mean Corpuscular Volume 95.5 fl (80-100); Mean Platelet Volume 10.1 fl (7.4-10.4); Platelet Count Result 200 k/mm3 (150-375); Red Blood Count 3.76 M/mm3 (4.6-6.20); Red Cell Distribution Width 14.1 % (11.5-14.5); White Blood Count 7.2 K/mm3 (4.5-10.0)
[2024-01-27 18:20] LABS: Alanine Aminotransferase 18 U/L (6-50); Albumin Level 4.2 g/dL (3.5-5.1); Alkaline Phosphatase 73 U/L (38-126); Anion Gap 8 mmol/L (4-12); Aspartate Amino Transferase 25 U/L (17-59); Bilirubin,Total 0.4 mg/dL (0.2-1.3); Blood Urea Nitrogen 19 mg/dL (9-20); Carbon Dioxide 29 mmol/L (22-30); Chloride 99 mmol/L (98-107); Cholesterol 162 mg/dL (0-200); Estimated Glomerular Filt Rate > 60; Glucose 90 mg/dL (65-110); HDL Direct 43 mg/dL; Magnesium 2.1 mg/dL (1.6-2.3); Potassium 3.5 mmol/L (3.4-5.0); Sodium 136 mmol/L (137-145); Triglycerides 411 mg/dL (<150)
[2024-01-27 18:31] LABS: LDL Cholesterol Direct 77 mg/dL
== END 2024-01-27 14:33 | disposition home or self-care (01) ==
PROVIDERS: PCP Family Medicine; Visit Provider Urology
DX: D41.02 Neoplasm of uncertain behavior of left kidney (principal); R19.7 Diarrhea, unspecified; D64.9 Anemia, unspecified; E78.5 Hyperlipidemia, unspecified; F41.9 Anxiety disorder, unspecified; I10 Essential (primary) hypertension; N28.9 Disorder of kidney and ureter, unspecified
CPT/HCPCS: 36415; 74183; 80053; 80061; 83735; 84443; 85027; A9577

== ENCOUNTER 2024-02-07 15:18 | Outpatient (CLI) | payer MEDICARE, SELFPAY ==
[2024-02-07 16:07] LABS: Iron 70 ug/dL (49-181)
[2024-02-07 16:09] LABS: Transferrin 261 mg/dL (206-381)
[2024-02-07 16:16] LABS: Percent Iron Saturation 21 % (20-50)
[2024-02-07 17:06] LABS: Folic Acid 18.4 ng/mL (2.76->20)
== END 2024-02-07 15:19 | disposition home or self-care (01) ==
LOC: ANHLAB 15:25
PROVIDERS: PCP Family Medicine; Visit Provider Family Medicine
DX: D64.9 Anemia, unspecified (principal); F41.9 Anxiety disorder, unspecified; E78.5 Hyperlipidemia, unspecified; I10 Essential (primary) hypertension; Z79.899 Other long term (current) drug therapy
CPT/HCPCS: 36415; 82607; 82746; 83540; 83550; 84466

== ENCOUNTER 2024-03-19 09:42 | Outpatient (CLI) | payer MEDICARE, SELFPAY ==
[2024-03-19 10:11] LABS: Basophils Percent Auto 0.5 % (0.2-1.2); Eosinophils Absolute Auto 0.1 K/mm3 (0-0.3); Eosinophils Percent Auto 1.5 % (0-4.4); Hematocrit 37.3 % (42.0-52.0); Hemoglobin 12.5 g/dL (14.0-18.0); Immature Granulocyte Absolute 0.03 K/mm3 (0.00-0.031); Immature Granulocyte Percent A 0.5 % (0-0.5); Lymphocytes Absolute Auto 1.63 K/mm3 (0.9-3.2); Lymphocytes Percent Auto 28.1 % (18.3-44.2); Mean Corpuscular HGB Conc 33.5 g/dl (32-36); Mean Corpuscular Hemoglobin 31.6 pg (26-34); Mean Corpuscular Volume 94.2 fl (80-100); Mean Platelet Volume 9.7 fl (7.4-10.4); Monocytes Absolute Auto 0.6 K/mm3 (0.1-0.6); Monocytes Percent Auto 9.6 % (2.6-8.5); Neutrophils Absolute Auto 3.5 K/mm3 (1.3-6.7); Neutrophils Percent Auto 59.8 % (45.5-73.1); Platelet Count Result 208 k/mm3 (150-375); Red Blood Count 3.96 M/mm3 (4.6-6.20); Red Cell Distribution Width 14.1 % (11.5-14.5); White Blood Count 5.8 K/mm3 (4.5-10.0)
[2024-03-19 10:51] LABS: Alanine Aminotransferase 22 U/L (6-50); Albumin Level 4.5 g/dL (3.5-5.1); Alkaline Phosphatase 84 U/L (38-126); Anion Gap 8 mmol/L (4-12); Aspartate Amino Transferase 31 U/L (17-59); Bilirubin,Total 0.5 mg/dL (0.2-1.3); Blood Urea Nitrogen 25 mg/dL (9-20); Calcium 9.3 mg/dL (8.4-10.2); Carbon Dioxide 28 mmol/L (22-30); Chloride 101 mmol/L (98-107); Estimated Glomerular Filt Rate > 60; Glucose 96 mg/dL (65-110); Sodium 137 mmol/L (137-145)
[2024-03-19 11:52] LABS: Folic Acid 13.5 ng/mL (2.76->20)
[2024-03-19 15:30] LABS: Iron 57 ug/dL (49-181)
[2024-03-19 15:42] LABS: Percent Iron Saturation 16 % (20-50)
[2024-03-25 17:12] LABS: Methylmalonic Acid 443 nmol/L (69-390)
[2024-03-26 15:28] LABS: Soluble Transferrin Receptor 0.98 mg/L (0.76-1.76)
== END 2024-03-19 09:43 | disposition home or self-care (01) ==
LOC: ANHLAB 09:45
PROVIDERS: PCP Family Medicine; Visit Provider Internal Medicine Hematology & Oncology
DX: D64.9 Anemia, unspecified (principal)
CPT/HCPCS: 36415; 80053; 82607; 82728; 82746; 83540; 83550; 83921; 84238; 85025

== ENCOUNTER 2024-03-26 13:56 | Outpatient (CLI) | payer MEDICARE, SELFPAY ==
--- NOTE | ~2024-03-26 | CT_ITS ---
CT of the Abdomen and Pelvis: Indication: Chronic anemia Technique: 2.5 mm axial scans were obtained through the abdomen and pelvis following intravenous adm inistration of 100 cc of Omnipaque 350. Dose reduction technique was used on this scan by utilizing a utomated exposure control and iterative reconstruction technique. The dose-length product (DLP) was 1 064.25 mGy-cm. COMPARISON: 07/28/2023 Findings: Scans through the lung bases are unremarkable. There is diffuse hepatic steatosis. The spleen, pancreas, gallbladder, and adrenal glands are within normal limits. 2.4 cm and 1.2 cm noncystic hypodense right renal lesions are stable from prior exam, and shown to represent hemorrhagic/proteinaceous cysts on prior MR examinations. There is a stable 1. 6 cm heterogeneous mixed solid cystic appearing mass in the left kidney (axial image 73). There are a therosclerotic calcifications of the aorta. No lymphadenopathy. No bowel obstruction or bowel wall thickening. There is no evidence to suggest acute appendicitis. Images through the pelvis were performed. Urinary bladder unremarkable. No pelvic mass seen. No ascit es. Impression: Stable bilateral renal lesions, as noted above. The right renal masses are shown to represent hemorrh agic/proteinaceous cysts on prior MR examinations. The mixed solid/cystic left renal mass is indeterm inate, and MR surveillance has been previously recommended. Please refer to MR report dated 01/27/2024 for further details. Diffuse hepatic steatosis. Reviewed, dictated and finalized at [facility]. Impression: Stable bilateral renal lesions, as noted above. The right renal masses are show n to represent hemorrhagic/proteinaceous cysts on prior MR examinations. The mi xed solid/cystic left renal mass is indeterminate, and MR surveillance has been previously recommended. Please refer to MR report dated 01/27/2024 for further details. Diffuse hepatic steatosis.
== END 2024-03-26 13:57 | disposition home or self-care (01) ==
LOC: ANHIMG 14:01
PROVIDERS: PCP Family Medicine; Visit Provider Internal Medicine Hematology & Oncology
DX: D64.9 Anemia, unspecified (principal)
CPT/HCPCS: 74177; Q9967

== ENCOUNTER 2024-08-17 10:46 | Outpatient (CLI) | payer MEDICARE, SELFPAY ==
[2024-08-17 11:27] LABS: Basophils Percent Auto 0.5 % (0.2-1.2); Eosinophils Absolute Auto 0.1 K/mm3 (0-0.3); Eosinophils Percent Auto 1.2 % (0-4.4); Hematocrit 37.2 % (42.0-52.0); Hemoglobin 12.6 g/dL (14.0-18.0); Immature Granulocyte Absolute 0.04 K/mm3 (0.00-0.031); Immature Granulocyte Percent A 0.7 % (0-0.5); Lymphocytes Absolute Auto 1.77 K/mm3 (0.9-3.2); Lymphocytes Percent Auto 31.2 % (18.3-44.2); Mean Corpuscular HGB Conc 33.9 g/dl (32-36); Mean Corpuscular Hemoglobin 31.7 pg (26-34); Mean Corpuscular Volume 93.5 fl (80-100); Monocytes Absolute Auto 0.6 K/mm3 (0.1-0.6); Monocytes Percent Auto 11.1 % (2.6-8.5); Neutrophils Absolute Auto 3.1 K/mm3 (1.3-6.7); Neutrophils Percent Auto 55.3 % (45.5-73.1); Platelet Count Result 224 k/mm3 (150-375); Red Blood Count 3.98 M/mm3 (4.6-6.20); Red Cell Distribution Width 14.4 % (11.5-14.5); White Blood Count 5.7 K/mm3 (4.5-10.0)
[2024-08-17 18:53] LABS: Iron 121 ug/dL (49-181)
[2024-08-17 19:11] LABS: Percent Iron Saturation 38 % (20-50)
[2024-08-17 20:21] LABS: Folic Acid 16.2 ng/mL (2.76->20); Vitamin B12 > 1000.0 pg/mL (239-931)
== END 2024-08-17 10:47 | disposition home or self-care (01) ==
LOC: ANHLAB 10:52
PROVIDERS: PCP Family Medicine; Visit Provider Internal Medicine Hematology & Oncology
DX: D64.9 Anemia, unspecified (principal)
CPT/HCPCS: 36415; 82607; 82728; 82746; 83540; 83550; 85025

== ENCOUNTER 2024-11-18 20:58 | Emergency (ER) | payer MEDICARE, SELFPAY ==
[2024-11-18] VITALS (10 sets, daily range): BP systolic 127–157; BP diastolic 61–86; PULSE 78–91; RESP 15–22; TEMP 36.2–36.9; O2SAT 94–97
--- NOTE | ~2024-11-18 | XR_ITS ---
XR chest 1V portable Ordering provider: Naima Azar PA-C History: 73 years Male with . SOB . Comparison: August 07, 2023 FINDINGS: MEDIASTINUM: The cardiac silhouette is not enlarged. LUNGS: No infiltrates, effusions or pneumothorax. Underlying emphysematous changes. OTHER: No free air under the diaphragm. Degenerative changes of the spine. IMPRESSION: No acute cardiopulmonary pathology. Reviewed, dictated and finalized at location A.
--- OUTSIDE RECORDS SUMMARY | 2024-11-18 21:00 | XMS_ITS | Clinical Summary ---
Author Organization [facility] Navinbenlakesha Martinez Address [address] [place] [address] Care Team Providers Care Gas Leak Tester Name Role Phone Unavailable Primary Care Provider Unavailabl e Allergies No known active allergies Medications lisinopril-hydro CHLOROthiazide (ZESTORETIC) 20-25 mg tablet Take 1 Tablet by mouth daily. 01/24/2024 Active atorvastatin (LIPITOR) 20 mg tablet Take 20 mg by mouth daily at bedtime. 01/30/2024 Active meclizine (ANTIVERT) 25 mg tablet Take 25 mg by mouth 3 times daily as needed for Dizziness. Active Active Problems No known active problems Encounters Date Type Department Care Team Description 11/05/2024 External Device Data [facility] ABSTRACTION Provider, Abstract 11/04/2024 External Device Data [facility] Provider, Abstract 11/03/2024 External Device Data [facility]STRACTION Provider, Abstract 09/29/2024 External Device Data [facility]STRACTION Provider, Abstract 09/22/2024 External Device Data [facility]STRACTION Provider, Abstract 09/02/2024 External Device Data [facility] ABSTRACTION Provider, Abstract 08/24/2024 External Device Data [facility] ABSTRACTION Provider, Abstract 08/18/[address] [facility]ology - [place] [address] [place] [id number] Jesus Bourne MD from Last 3 Months Family History Medical History Relation Name Comments Diabetes Daughter sean No Known Problems Father Diabetes Mother No Known Problems Sister 1 [place] No Known Problems Sister 2 carlyle No Known Problems Son 1 Abdullahi No Known Problems Son 2 kevyn No Known Problems Son 3 presley No Known Problems Son 4 opal No Known Problems Son 5 marzena No Known Problems Son 6 renata Relation Name Status Comments Daughter sean Father Mother Sister 1 [place] Sister 2 carlyle Son 1 Abdullahi Alive Son 2 kevyn Alive Son 3 presley Alive Son 4 opal Alive Son 5 marzena Alive Son 6 renata Alive Social History Tobacco Use Types Packs/Day Years Used Date Smoking Tobacco: Former Cigarettes 1 50 Q uit: 03/19/2017 Tobacco Cessation:Counseling Given: Not Answered Alcohol Use Standard Drinks/Week Comments Yes 0 (1 standard drink = 0.6 oz pur e alcohol) occasional/ socially Sex and Gender Information Value Date Recorded Sex Assigned at Not on file Legal Sex Male 10:14 AM CDT Gender Identity Not on file Sexual Orientation Not on file Last Filed Vital Signs Vital Sign Reading Time Taken Comments Blood Pressure 135/76 04/02/2024 10:39 AM CDT Pulse 81 04/02/2024 10:39 AM CDT Temperature 36.9 C (98.4 F) 04/02/2024 10:39 AM CDT Respiratory Rate 16 04/02/2024 10:39 AM CDT Oxygen Saturation 96% 04/02/2024 10:39 AM CDT Inhaled Oxygen Concentration - - Weight 92.8 kg (204 lb 9.6 oz) 04/02/2024 10:39 AM CDT Height 177.8 cm (5' 10) 03/19/2024 8:52 AM CDT Body Mass Index 29.36 03/19/2024 8:52 AM CDT Plan of Treatment Health Maintenance Due Date Last Done Comments DTAP/TDAP/TD VACCINES (1 - Tdap) 1968 COLORECTAL SCREENING 1994 Colorectal Cancer Screening 1994 FIT-DNA Q 3 years 1994 FIT/FOBT Q 1 year 1994 Flex Sig/CT Colonography Q 5 years 1994 Lung Cancer Screening 11/20/1999 PNEUMOCOCCAL VACCINE 50+ YEARS (1 of 1 - PCV) 11/20/19 00 ZOSTER VACCINE (1 of 2) 11/20/1999 Abdominal Aortic Aneurysm (AAA) Screening 2014 INFLUENZA VACCINE (#1) 2024 RSV VACCINE (60+ or ) (1 - 1-dose 75+ series) 2024 Insurance
--- OUTSIDE RECORDS SUMMARY | 2024-11-18 21:00 | XMS_ITS | CONTINUITY OF CARE DOCUMENT ---
Author Name agustin velez Address Unknown Organization [facility] Address [address] [place] [address] [address] [place] [address] Phone [phone] Care Team Providers Care Direct Care Professional Name Role Phone agustin velez Unavailable Unavailable INSURANCE PROVIDERS Payer name Policy type / Coverage type Paula red green party ID [facility] Other [id number]
--- NOTE | 2024-11-18 21:04 | ECG_ITS ---
Test Date: 2024-11-18 21:32:24 Measurements Intervals [place] Rate: 80 P: 75 NH: 179 QRS: 81 QRSD: 118 T: 70 QT: 367 QTc: 426 Interpretive Statements SINUS RHYTHM WITH OCCASIONAL VENTRICULAR PREMATURE COMPLEXES INCOMPLETE RIGHT BUNDLE BRANCH BLOCK BORDERLINE R WAVE PROGRESSION, ANTERIOR LEADS BASELINE ARTIFACT- I, II, III, AVR, AVL, AVF, V1-V6 BORDERLINE ECG No previous ECG available for comparison Electronically Signed On 11-19-2024 06:10:17 CDT by Delroy Thomas D.O.
--- NOTE | 2024-11-18 21:17 | ED.SOB ---
HPI - SOB/Dyspnea General Chief Complaint: Shortness of Breath/Dyspnea Stated Complaint: cough and SOB x1 day Time Seen by Provider: 11/18/24 21:04 Source: patient Mode of arrival: ambulatory Limitations: no limitations History of Present Illness HPI Narrative: This is a 73-year-old male that presents to the emergency department for shortness of breath. Ongoing since yesterday. Associated with rhinorrhea, congestion, cough. Denies fevers. 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 Smoking packs per day: 1 Smoking cigarettes per day: 20.0 Years smoked: 40 Smoking pack-years: 40.00 Smoking status: Former smoker Tobacco type: cigarettes Second hand tobacco smoke exposure: Yes Smoking end date: 04/03/19 Alcohol intake: current Drinks per week: 12 Alcohol use details: beer Substance use: never Substance use type: does not use Lack of Transportation: No Lack of Food: Sometimes True Current Housing: I Have Housing Concerned About Future Housing: No Difficulty Paying Gas/Electric Bills: No Difficulty Paying for Meds: No Currently Unemployed: No Education: High School Diploma/GED Difficulty w/ Childcare or Family Care: No Living arrangements: with family Occupation/Education: occupation 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 HEAD: Normocephalic, atraumatic. EYES: EOMI. ENT: Nares clear, no rhinorrhea or epistaxis. Mucous membranes moist. Oropharynx without tonsillar hypertrophy exudate or other lesions. Bilateral TMs pearly cerna non-bulging NECK: Supple. No adenopathy or masses. CHEST: No respiratory distress. Lung sounds mildly diminished with expiratory wheezing. No rales or rhonchi HEART: Regular rate and rhythm. No murmur heard. Normal peripheral pulses. EXTREMITIES: Normal range of motion. No edema. SKIN: Warm, dry, no rash. NEURO: No focal deficits. Alert and oriented x3. PSYCH: Normal mood and affect Course Course Emergency Course: Patient with improvement after nebulizer treatment, steroid. Ready for discharge Vital Signs Vital signs: Vital Signs Temperature 97.2 F L 11/18/24 21:03 Pulse Rate 85 11/18/24 21:03 Respiratory Rate 22 H 11/18/24 21:03 Blood Pressure 144/86 H 11/18/24 21:03 Pulse Oximetry 95 11/18/24 21:03 Temperature 98.4 F 11/18/24 21:10 Pulse Rate 82 11/18/24 22:02 Respiratory Rate 17 11/18/24 22:02 Blood Pressure 130/61 11/18/24 22:02 Pulse Oximetry 97 11/18/24 22:02 Oxygen Delivery Room Air 11/18/24 21:11 MDM - SOB/Dyspnea MDM Narrative Medical decision making narrative: Patient presents to emergency department for shortness of breath, cough, congestion. Ongoing since yesterday. History of COPD. Patient is afebrile and nontoxic appearing. Oxygen saturation is normal on room air. Mild wheezing noted upon arrival. Cbc without leukocytosis. Metabolic panel with mild hypokalemia. This was replaced. Influenza, RSV and COVID screens are negative. Chest x-ray without acute cardiopulmonary abnormality. Patient with improvement after nebulizer treatment, steroid. He is to follow up with primary provider. He was given warnings to return to the ER Differential Diagnosis Differential diagnosis: Likely acute exacerbation of chronic obstructive airways disease, community acquired pneumonia, asthma with exacerbation and other (bronchitis, COVID, influenza, RSV) Lab Data 11/18/24 21:23 11/18/24 21:23 Labs: Lab Results 11/18/24 Range/Units 21:23 WBC 6.4 (4.5-10.0) K/mm3 RBC 3.93 L (4.6-6.20) M/mm3 Hgb 12.6 L (14.0-18.0) g/dL Hct 38.3 L (42.0-52.0) % MCV 97.5 (80-100) fl MCH 32.1 (26-34) pg MCHC 32.9 (32-36) g/dl RDW 14.6 H (11.5-14.5) % Plt Count 193 (150-375) k/mm3 MPV 10.1 (7.4-10.4) fl Immature Gran % (Auto) 0.3 (0-0.5) % Neut % (Auto) 68.0 (45.5-73.1) % Lymph % (Auto) 17.0 L (18.3-44.2) % [place] % (Auto) 13.5 H (2.6-8.5) % Eos % (Auto) 0.9 (0-4.4) % Baso % (Auto) 0.3 (0.2-1.2) % Lymph # (Auto) 1.08 (0.9-3.2) K/mm3 [place] # (Auto) 0.9 H (0.1-0.6) K/mm3 Eos # (Auto) 0.1 (0-0.3) K/mm3 Baso # (Auto) 0.0 (0.0-0.1) K/mm3 Abs Immat Gran (auto) 0.02 (0.00-0.031) K/mm3 Absolute Neuts (auto) 4.3 (1.3-6.7) K/mm3 Absolute Nucleated RBC 0.000 (0.0-0.012) K/mm3 Nucleated RBC % 0.0 (0.0-0.2) % Sodium 139 (137-145) mmol/L Potassium 3.3 L (3.4-5.0) mmol/L Chloride 104 (98-107) mmol/L Carbon Dioxide 25 (22-30) mmol/L Anion Gap 10 (4-12) mmol/L BUN 18 (9-20) mg/dL Creatinine 0.91 (0.7-1.3) mg/dL Estim Creat Clear Calc 67 ml/min Estimated GFR > 60 (59 - ) Glucose 145 H (65-110) mg/dL Calcium 8.8 (8.4-10.2) mg/dL Magnesium 1.9 (1.6-2.3) mg/dL Total Bilirubin 0.5 (0.2-1.3) mg/dL AST 31 (17-59) U/L ALT 25 (6-50) U/L Alkaline Phosphatase 101 (38-126) U/L Total Protein 7.6 (6.3-8.2) g/dL Albumin 4.5 (3.5-5.1) g/dL Influenza A (RT-PCR) Negative (Negative) Influenza B (RT-PCR) Negative (Negative) RSV (RT-PCR) Negative (Negative) SARS-CoV-2 RNA (RT-PCR) Negative (Negative) Imaging Data Radiologist's impression: ITS Impressions Chest X-Ray 11/18/24 21:55 IMPRESSION: No acute cardiopulmonary pathology. ECG Data EKG #1: ECG completion date: 11/18/24 EKG Interpretation: normal rate, sinus rhythm, no ST changes and normal QT Critical Care Time Critical Care Time Critical Care Time: No Discharge Plan Discharge Clinical Impression: COPD exacerbation Patient Disposition: Home Condition: Stable Instructions: Antibiotic Form, Hypokalemia (ED), Acute Bronchitis (ED) Additional Instructions: Return to the emergency department for worsening symptoms, or any other concerns Remain well-hydrated, get plenty of rest. Take Tylenol or Motrin [id number] for pain as needed. Flonase for nasal congestion. Zyrtec for runny nose. Continue oral steroid as prescribed. Take antibiotic as prescribed Follow up with primary care doctor Patient Language: [place] Islander Prescriptions: New azithromycin 250 mg tablet See Rx Instructions .ROUTE .COMPLEX Qty: 6 0RF Rx Instructions: For 250 mg dose pack: take 500 mg today (day 1), then 250 mg for 4 days (days 2-5) prednisone 20 mg tablet 40 mg PO DAILY 4 Days Qty: 8 0RF No Action budesonide-formoterol [Symbicort] 160-4.5 mcg/actuation HFA aerosol inhaler 2 puff inhalation Q12H Qty: 10.2 2RF lisinopril-hydrochlorothiazide 20-25 mg tablet See Rx Instructions .ROUTE .COMPLEX Qty: 90 1RF Dose Instruction: Take 1 tablet by mouth once daily Rx Instructions: Take 1 tablet by mouth once daily atorvastatin 20 mg tablet See Rx Instructions .ROUTE .COMPLEX Qty: 90 1RF Dose Instruction: TAKE 1 TABLET BY MOUTH EVERY DAY AT BEDTIME Rx Instructions: TAKE 1 TABLET BY MOUTH EVERY DAY AT BEDTIME albuterol sulfate 90 mcg/actuation HFA aerosol inhaler 1 inh inhalation Q4-6H PRN (Reason: shortness of breath or wheezing) Qty: 18 4RF Follow-up/Referrals: Seda Ham DO [Primary Care Provider] -
[2024-11-18 21:31] LABS: Basophils Percent Auto 0.3 % (0.2-1.2); Eosinophils Absolute Auto 0.1 K/mm3 (0-0.3); Eosinophils Percent Auto 0.9 % (0-4.4); Hematocrit 38.3 % (42.0-52.0); Hemoglobin 12.6 g/dL (14.0-18.0); Immature Granulocyte Absolute 0.02 K/mm3 (0.00-0.031); Immature Granulocyte Percent A 0.3 % (0-0.5); Lymphocytes Absolute Auto 1.08 K/mm3 (0.9-3.2); Mean Corpuscular HGB Conc 32.9 g/dl (32-36); Mean Corpuscular Hemoglobin 32.1 pg (26-34); Mean Corpuscular Volume 97.5 fl (80-100); Mean Platelet Volume 10.1 fl (7.4-10.4); Monocytes Absolute Auto 0.9 K/mm3 (0.1-0.6); Monocytes Percent Auto 13.5 % (2.6-8.5); Neutrophils Absolute Auto 4.3 K/mm3 (1.3-6.7); Platelet Count Result 193 k/mm3 (150-375); Red Blood Count 3.93 M/mm3 (4.6-6.20); Red Cell Distribution Width 14.6 % (11.5-14.5); White Blood Count 6.4 K/mm3 (4.5-10.0)
--- OUTSIDE RECORDS SUMMARY | 2024-11-18 21:36 | XMS_ITS | CONTINUITY OF CARE DOCUMENT ---
Author Name agustin velez Address Unknown Organization [facility] Address [address] [place] [address] [address] [place] [address] Phone [phone] Care Team Providers Care Primer Assembler Name Role Phone agustin velez Unavailable Unavailable INSURANCE PROVIDERS Payer name Policy type / Coverage type Paula red republican ID [facility] Other [id number]
--- OUTSIDE RECORDS SUMMARY | 2024-11-18 21:36 | XMS_ITS | Clinical Summary ---
Author Organization [facility] Navinbenlakesha Martinez Address [address] [place] [address] Care Team Providers Care Cargo Tank Mechanic Name Role Phone Unavailable Primary Care Provider [...] STL ABSTRACTION Provider, Abstract 08/18/2024 Orders Only [facility] Oncology and Hematology - [place] [address] [place] [id number] Jesus Bourne MD from Last 3 Months Family History Medical History Relation Name Comments Diabetes Daughter sean No Known Problems Father Diabetes Mother No Known Problems Sister 1 [place] No Known Problems Sister 2 carlyle No Known Problems Son 1 Abdullahi No Known Problems Son 2 kevyn No Known Problems Son 3 presley No Known Problems Son 4 opal No Known Problems Son 5 marzena No Known Problems Son 6 renata Relation Name Status Comments Daughter sean Father Mother Sister 1 [place] Sister 2 carlyle Son 1 Abdullahi Alive [...]
[2024-11-18 21:40] LABS: Alanine Aminotransferase 25 U/L (6-50); Albumin Level 4.5 g/dL (3.5-5.1); Alkaline Phosphatase 101 U/L (38-126); Anion Gap 10 mmol/L (4-12); Aspartate Amino Transferase 31 U/L (17-59); Bilirubin,Total 0.5 mg/dL (0.2-1.3); Blood Urea Nitrogen 18 mg/dL (9-20); Calcium 8.8 mg/dL (8.4-10.2); Carbon Dioxide 25 mmol/L (22-30); Chloride 104 mmol/L (98-107); Estimated CRCL calculation 67 ml/min; Estimated Glomerular Filt Rate > 60; Glucose 145 mg/dL (65-110); Potassium 3.3 mmol/L (3.4-5.0); Sodium 139 mmol/L (137-145); Total Protein 7.6 g/dL (6.3-8.2)
[2024-11-18] MEDS: IPRATROPIUM 0.5 MG/ALBUTEROL SULFATE 2.5 MG AMPUL.NEB 3 ML INHALATION (21:42)
[2024-11-18] MEDS: methylPREDNISolone SOD SUCC 125 MG VIAL IV PUSH (21:49)
[2024-11-18] MEDS: MAGNESIUM SULF 2 GM/WATER 50ML 2 GM/50 ML BAG IVPB (21:49)
[2024-11-18] MEDS: POTASSIUM CHLORIDE 20 MEQ ER TABLET 40 MEQ PO (21:56)
[2024-11-18 22:07] LABS: Influenza A QL RT-PCR Negative (Negative); Influenza B QL RT-PCR Negative (Negative); RSV RNA, RT-PCR Negative (Negative); SARS-CoV-2 RNA PCR Negative (Negative)
[2024-11-18 22:26] LABS: Magnesium 1.9 mg/dL (1.6-2.3)
== END 2024-11-18 23:51 | disposition home or self-care (01) ==
PROVIDERS: Emergency Provider Physician Assistant; PCP Family Medicine
DX: J44.1 Chronic obstructive pulmonary disease with (acute) exacerbation (principal); Z20.822 Contact with and (suspected) exposure to COVID-19; I10 Essential (primary) hypertension; E78.5 Hyperlipidemia, unspecified; K21.9 Gastro-esophageal reflux disease without esophagitis; Z87.891 Personal history of nicotine dependence; Z79.899 Other long term (current) drug therapy
CPT/HCPCS: 36415; 71045; 80053; 83735; 85025; 87637; 93005; 96365; 96366; 96375; 99284; A9270; J2919; J3475

== ENCOUNTER 2025-02-28 17:03 | Emergency (ER) | payer MEDICARE, SELFPAY ==
[2025-02-28] VITALS (20 sets, daily range): BP systolic 94–118; BP diastolic 55–67; PULSE 82–94; RESP 16–27; TEMP 36.7; O2SAT 89–95
--- NOTE | ~2025-02-28 | CT_ITS ---
EXAMINATION: CT chest abdomen pelvis wo con DATE: 02/28/2025 20:08 INDICATION: Chest and abdominal injury. TECHNIQUE: Computed tomography (CT) of the chest, abdomen, and pelvis was performed without intravenous contrast. Automated exposure control and iterative reconstruction technique were employed. The dose-length product was 1270.68 mGy-cm. COMPARISON: CT abdomen and pelvis 03/26/2024, chest CT 03/31/2020 FINDINGS: CHEST CT: There is mild emphysema. There are airspace and groundglass opacities in left lower lobe and left lower lobe, consistent with pneumonia. There is a 6 mm nodule in right lower lobe, stable from 03/31/2020, likely benign. A calcified left lung nodule and calcified left hilar lymph nodes are consistent with old granulomatous disease. There is a trace left pleural effusion. The heart size is normal. There are coronary artery calcifications. No pericardial effusion. There are old healed left rib fractures. There are bridging endplate osteophytes at multiple levels in the spine, consistent with diffuse idiopathic skeletal hyperostosis (DISH). ABDOMEN/PELVIS CT: There is diffuse hepatic steatosis. There is mild splenomegaly, which may be secondary to obesity. The gallbladder, pancreas, and adrenal glands are normal. There are hemorrhagic cysts in the kidneys measuring up to 2.7 cm on the right. There is no urolithiasis. The prostate is mildly enlarged. There is a right inguinal hernia containing fat. There is diverticulosis of the colon without evidence of diverticulitis. The appendix is normal. There are no dilated loops of bowel. There are no pathologically enlarged lymph nodes. There is no free intraperitoneal fluid. There is severe lower lumbar spondylosis. IMPRESSION: 1. Pneumonia involving left upper lobe and left lower lobe. 2. Mild emphysema. 3. Diffuse hepatic steatosis. Reviewed, dictated and finalized at location K.
--- OUTSIDE RECORDS SUMMARY | 2025-02-28 17:05 | XMS_ITS | Clinical Summary ---
Author Organization [facility] Address [address] [facility] [place] [address] Care Team Providers Care Stationary Engineer Apprentice Name Role Phone Unavailable Primary Care Provider [...] Encounters Date Type Department Care Team Description 02/23/2025 External Device Data STL ABSTRACTION Provider, Abstract 02/16/2025 External Device Data STL ABSTRACTION Provider, Abstract from Last 3 Months Family History Medical History Relation Name Comments Diabetes Daughter sean No Known Problems Father Diabetes Mother No Known Problems Sister 1 [place] No Known Problems Sister 2 carlyle No Known Problems Son 1 Abdullahi No Known Problems Son 2 kevyn No Known Problems Son 3 presley No Known Problems Son 4 opal No Known Problems Son 5 marzena No Known Problems Son 6 renata Relation Name Status Comments Daughter sean Father Mother Sister 1 [place] Sister 2 carlyle Son 1 Abdullahi Alive [...] 11/20/1999 Abdominal Aortic Aneurysm (AAA) Screening 2014 RSV VACCINE (60+ or ) (1 - 1-dose 75+ series) 2024 INFLUENZA VACCINE (#1) 2025 Insurance [facility]
--- NOTE | 2025-02-28 18:42 | ECG_ITS ---
Test Date: 2025-02-28 18:56:23 Measurements Intervals Anthon Rate: 86 P: 59 MN: 161 QRS: 77 QRSD: 114 T: 73 QT: 365 QTc: 438 Interpretive Statements SINUS RHYTHM WITH OCCASIONAL SUPRAVENTRICULAR PREMATURE COMPLEXES MODERATE INTRAVENTRICULAR CONDUCTION DELAY [110+ ms QRS DURATION] ABNORMAL ECG Compared to ECG 11/18/2024 21:32:24 Intraventricular conduction delay now present Ventricular premature complex(es) no longer present Incomplete right bundle-branch block no longer present Electronically Signed On 03-01-2025 07:49:53 CDT by Reji Richards M.D.
--- NOTE | 2025-02-28 19:38 | ED_ITS ---
HPI - General Adult General Chief complaint: Unspecified Stated complaint: pulled muscle in chest? Time Seen by Provider: 02/28/25 17:51 Source: patient Mode of arrival: ambulatory Limitations: no limitations History of Present Illness HPI narrative: Patient is a 74-year-old male who presents the ED with report of chest wall pain. Patient reports he was lifting a heavy object yesterday and felt a pop in his left lower chest/upper abdomen at that time. Has had pain present throughout this region since then. Worse with moving, sitting upright, deep breathing. Patient denies feeling short of breath. Has not taken anything for pain. Denies any other injuries. Related Data Allergies Allergy/AdvReac Type Severity Reaction Status Date / Time No Known Allergies Allergy Verified 01/11/25 09:47 Review of Systems 2 Review of Systems: All systems reviewed & are unremarkable except as noted in HPI. 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 Smoking packs per day: 1 Smoking cigarettes per day: 20.0 Years smoked: 40 Smoking pack-years: 40.00 Smoking status: Former smoker Tobacco type: cigarettes Second hand tobacco smoke exposure: Yes Smoking end date: 04/03/19 Alcohol intake: current Drinks per week: 12 Alcohol use details: beer Substance use: never Substance use type: does not use Lack of Transportation: No Lack of Food: Sometimes True Current Housing: I Have Housing Concerned About Future Housing: No Difficulty Paying Gas/Electric Bills: No Difficulty Paying for Meds: No Currently Unemployed: No Education: High School Diploma/GED Difficulty w/ Childcare or Family Care: No Living arrangements: with family Occupation/Education: occupation 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 HEAD: Normocephalic, atraumatic. RESPIRATORY: Airway patent, respirations nonlabored. Clear to auscultation bilaterally, no rales, rhonchi, wheezing. Lung sounds are equal jes CARDIOVASCULAR: Regular rate and rhythm without murmurs, rubs, or gallops. ABDOMINAL: Soft, TTP in L upper abdomen/along left lower anterior rib cage, nondistended. Normoactive BS. MUSCULOSKELETAL: Moves all extremities. No gross deformities. TTP along L anterolateral chest wall. No palpable bony deformities or step-offs. SKIN: Warm, dry, normal color. NEURO: A&O X3. Speech clear. Cranial nerves II-XII grossly intact. Steady gait. No ataxic movements. PSYCHIATRIC: Appropriate mood and affect. Normal interaction. Course Vital Signs Vital signs: Vital Signs Temperature 98.1 F 02/28/25 17:26 Pulse Rate 94 02/28/25 17:26 Respiratory Rate 18 02/28/25 17:26 Blood Pressure 94/55 L 02/28/25 17:26 Pulse Oximetry 95 02/28/25 17:26 Oxygen Delivery Room Air 02/28/25 17:26 Temperature 98.1 F 02/28/25 17:26 Pulse Rate 85 02/28/25 19:47 Respiratory Rate 27 H 02/28/25 19:47 Blood Pressure 105/65 02/28/25 19:46 Pulse Oximetry 93 02/28/25 19:47 Oxygen Delivery Room Air 02/28/25 17:26 Medical Decision Making MDM Narrative Medical decision making narrative: Patient presented to ED with chest wall/abdominal pain after feeling a pop in this region while doing heavy lifting yesterday. Vital signs stable upon arrival. Patient in no acute distress. EKG without concerning ischemic changes. CT of chest/abdomen/pelvis was obtained and w/o acute fx. No rib fx, pulmonary contusion, PTX. No obvious internal injury. Did show evidence of left-sided middle and lower lobe pneumonia. Discussed this with patient. He does report having chronic cough related to COPD. Denies production of sputum. Denies worsening of cough or sob recently. Denies fevers. Given more extensive nature of pneumonia in the setting of underlying lung disease, will treat with antibiotics regardless of symptomatology. Laboratory studies were obtained and with white blood cell count of 11.1. Mild anemia, consistent with previous records. CMP with evidence of slight dehydration. Discussed this with patient. Advised plenty of fluid hydration. Troponin undetectable. Discussed lab and imaging findings, overall workup with patient. He is requesting to be discharged. He feels comfortable going home with antibiotics. He does not want to be admitted at this time. He is stable, no evidence of sepsis or hemodynamic instability. Feel he is safe for close outpatient follow-up. Advised very close follow-up with PCP. He does report he has an appointment on 03/04. Discussed very strict return precautions. Patient voiced understanding. Discharged in stable condition. Medical Records Medical records reviewed: Yes I reviewed the external patient's medical records. Vital Signs Vital Signs: Vital Signs Temperature 98.1 F 02/28/25 17:26 Pulse Rate 94 02/28/25 17:26 Respiratory Rate 18 02/28/25 17:26 Blood Pressure 94/55 L 02/28/25 17:26 Pulse Oximetry 95 02/28/25 17:26 Oxygen Delivery Room Air 02/28/25 17:26 Temperature 98.1 F 02/28/25 17:26 Pulse Rate 85 02/28/25 19:47 Respiratory Rate 27 H 02/28/25 19:47 Blood Pressure 105/65 02/28/25 19:46 Pulse Oximetry 93 02/28/25 19:47 Oxygen Delivery Room Air 02/28/25 17:26 Lab Data Lab results reviewed: Yes I reviewed the patient's lab results. 02/28/25 23:30 02/28/25 23:30 Labs: Lab Results 02/28/25 02/28/25 Range/Units 23:30 23:53 WBC 11.1 H (4.5-10.0) K/mm3 RBC 3.59 L (4.6-6.20) M/mm3 Hgb 11.3 L (14.0-18.0) g/dL Hct 34.3 L (42.0-52.0) % MCV 95.5 (80-100) fl MCH 31.5 (26-34) pg MCHC 32.9 (32-36) g/dl RDW 14.7 H (11.5-14.5) % Plt Count 232 (150-375) k/mm3 MPV 10.2 (7.4-10.4) fl Immature Gran % (Auto) 0.7 H (0-0.5) % Neut % (Auto) 79.9 H (45.5-73.1) % Lymph % (Auto) 8.8 L (18.3-44.2) % [place] % (Auto) 10.1 H (2.6-8.5) % Eos % (Auto) 0.2 (0-4.4) % Baso % (Auto) 0.3 (0.2-1.2) % Lymph # (Auto) 0.97 (0.9-3.2) K/mm3 [place] # (Auto) 1.1 H (0.1-0.6) K/mm3 Eos # (Auto) 0.0 (0-0.3) K/mm3 Baso # (Auto) 0.0 (0.0-0.1) K/mm3 Abs Immat Gran (auto) 0.08 H (0.00-0.031) K/mm3 Absolute Neuts (auto) 8.9 H (1.3-6.7) K/mm3 Absolute Nucleated RBC 0.000 (0.0-0.012) K/mm3 Nucleated RBC % 0.0 (0.0-0.2) % PT 14.6 (11.1-14.7) Seconds INR 1.1 APTT 30.7 (22.3-36.8) Seconds Sodium 134 L (137-145) mmol/L Potassium 3.7 (3.4-5.0) mmol/L Chloride 101 (98-107) mmol/L Carbon Dioxide 23 (22-30) mmol/L Anion Gap 10 (4-12) mmol/L BUN 37 H D (9-20) mg/dL Creatinine 1.49 H (0.7-1.3) mg/dL Estim Creat Clear Calc Not Reportable Estimated GFR 46 L (59 - ) Glucose 115 H (65-110) mg/dL Lactic Acid 1.7 (0.7-2.0) mmol/L Calcium 8.8 (8.4-10.2) mg/dL Total Bilirubin 1.6 H (0.2-1.3) mg/dL AST 25 (17-59) U/L ALT 20 (6-50) U/L Alkaline Phosphatase 72 (38-126) U/L Troponin I < 0.012 (0.000-0.034) ng/mL Total Protein 7.8 (6.3-8.2) g/dL Albumin 4.4 (3.5-5.1) g/dL Imaging Data Attestation: I personally reviewed and interpreted this imaging study as follows: Radiologist's impression: STAT RAD CT Chest: Impression: Airspace with PACs of the left upper and lower lobes are most consistent with multifocal pneumonia and/or aspiration. There is underlying emphysema. A 6 mm right lower lobe pulmonary nodule is present. Fleischner Society guidelines for high-risk patients (smoking history or other known risk factors) initial follow-up chest CT in 6-12 months and if unchanged, 18-24 months. The heart size is upper limits of normal. There are dense coronary artery calcifications. Dilated pulmonary arteries is concerning for pulmonary artery hypertension. No pathologically enlarged lymph nodes. No fracture. No incidental findings. STAT RAD CT abd/pelvis: Impression: Significant patient motion makes evaluation difficult. Question nodular contour of the liver. Suspect splenomegaly, however this is not definitive due to patient motion. Redemonstrated renal lesions. Please see prior MRI and CT reports regarding these lesions. No hydronephrosis. The remaining solid organs are within normal limits. No bowel obstruction. Diverticulosis. Normal appendix. No fracture. No incidental findings. ECG Data EKG #1: Attestation: I personally reviewed and interpreted this ECG as follows: ECG completion date: 02/28/25 ECG completion time: 18:56 EKG Interpretation: normal rate (86), sinus rhythm, PVCs and no ST changes Discharge Plan Discharge Clinical Impression: Muscle strain of anterior chest wall Sprain of ribs Qualifiers: Encounter type: initial encounter Qualified Code(s): S23.41XA - Sprain of ribs, initial encounter Pneumonia Qualifiers: Pneumonia type: due to unspecified organism Laterality: left Lung location: l ower lobe of lung Qualified Code(s): J18.9 - Pneumonia, unspecified organism Patient Disposition: Home Condition: Stable Instructions: Antibiotic Form, Muscle Strain (ED), Pneumonia (ED), Chest Wall Pain (ED), Rib Contusion (ED) Additional Instructions: Take antibiotics as prescribed for pneumonia. It is important you finish both courses. Continue your home inhalers as needed. Follow-up very closely with your primary care doctor for further evaluation to ensure improvement of pneumonia. Call office to make appointment. Return to the ED if you experience worsening or severe difficulty breathing, unable to keep down food or drink, persistent fevers, chest pain, coughing blood, severe pain, or any other symptoms of concern. You will likely be sore over the next several days. Utilize incentive spirometer to encourage deep breathing. Continue Tylenol and Ibuprofen as needed for pain. You may use ice/heat, lidocaine patches to area of pain. Take muscle relaxers as needed and prescribed. Recommend taking these at night as they may cause sedation. Do not drive, operate heavy machinery, drink alcohol while on muscle relaxers as this may cause further sedation. Patient Language: Tajik Prescriptions: New doxycycline monohydrate 100 mg tablet 100 mg PO BID 5 Days Qty: 10 0RF amoxicillin-pot clavulanate 875-125 mg tablet 1 tablet PO Q12H 7 Days Qty: 14 0RF methocarbamol 750 mg tablet 1,500 mg PO TID PRN (Reason: muscle spasm) Qty: 15 0RF lidocaine 5 % adhesive patch,medicated 1 patch topical DAILY Qty: 15 0RF Rx Instructions: leave on most painful area for up to 12 hrs No Action budesonide-formoterol [Symbicort] 160-4.5 mcg/actuation HFA aerosol inhaler 2 puff inhalation Q12H Qty: 10.2 2RF albuterol sulfate 2.5 mg /3 mL (0.083 %) solution for nebulization 2.5 mg inhalation Q4-6H PRN (Reason: shortness of breath or wheezing) Qty: 180 1RF (DME) Nebulizer See Rx Instructions .Route .MEDSUPPLY Qty: 1 0RF Rx Instructions: As directed lisinopril-hydrochlorothiazide 20-25 mg tablet See Rx Instructions .ROUTE .COMPLEX Qty: 90 1RF Dose Instruction: Take 1 tablet by mouth once daily Rx Instructions: Take 1 tablet by mouth once daily atorvastatin 20 mg tablet See Rx Instructions .ROUTE .COMPLEX Qty: 90 1RF Dose Instruction: TAKE 1 TABLET BY MOUTH EVERY DAY AT BEDTIME Rx Instructions: TAKE 1 TABLET BY MOUTH EVERY DAY AT BEDTIME albuterol sulfate 90 mcg/actuation HFA aerosol inhaler 1 inh inhalation Q4-6H PRN (Reason: shortness of breath or wheezing) Qty: 18 5RF Follow-up/Referrals: Seda Ham DO [Primary Care Provider, Family Practice] Time of Disposition: 00:21
[2025-02-28] MEDS: ACETAMINOPHEN 500 MG TABLET 1000 MG PO (19:46)
--- NOTE | 2025-02-28 22:00 | PC.NURSE ---
pt continues to call out ultrasonic solderer light demanding his results. Pt verbalized that at 1015 he is leaving. PA aware and filled out ama form. This rn at bedside and attempted to explain the ct is what we are waiting on and present pt with ama form. This rn reviewed and explained ama form/risks. PT argumentative and refusing to sign paperwork. Pt verbalized that he would sign at 1015pm when he leaves. AMA form left at bedside for pt. PA made aware of pt argumentative conversation.
--- NOTE | 2025-02-28 22:44 | PC.NURSE ---
nurse to room to update pt that ct is still not resulted. Pt remains on stretcher and states she is gonna make me stay here Pt referring to his .
[2025-02-28 23:37] LABS: Hematocrit 34.3 % (42.0-52.0); Hemoglobin 11.3 g/dL (14.0-18.0); Immature Granulocyte Percent A 0.7 % (0-0.5); Lymphocytes Absolute Auto 0.97 K/mm3 (0.9-3.2); Mean Corpuscular HGB Conc 32.9 g/dl (32-36); Mean Corpuscular Hemoglobin 31.5 pg (26-34); Mean Corpuscular Volume 95.5 fl (80-100); Nucleated Red Blood Cells Absolute Auto 0.000 K/mm3 (0.0-0.012); Nucleated Red Blood Cells Perc 0.0 % (0.0-0.2); Platelet Count Result 232 k/mm3 (150-375); Red Blood Count 3.59 M/mm3 (4.6-6.20); White Blood Count 11.1 K/mm3 (4.5-10.0)
--- NOTE | 2025-02-28 23:46 | PC.NURSE ---
pt moved from c-side to ed room 13. pt willing to have blood drawn.
[2025-02-28 23:48] LABS: Alanine Aminotransferase 20 U/L (6-50); Albumin Level 4.4 g/dL (3.5-5.1); Alkaline Phosphatase 72 U/L (38-126); Anion Gap 10 mmol/L (4-12); Aspartate Amino Transferase 25 U/L (17-59); Bilirubin,Total 1.6 mg/dL (0.2-1.3); Blood Urea Nitrogen 37 mg/dL (9-20); Calcium 8.8 mg/dL (8.4-10.2); Carbon Dioxide 23 mmol/L (22-30); Chloride 101 mmol/L (98-107); Estimated Glomerular Filt Rate 46; Glucose 115 mg/dL (65-110); Potassium 3.7 mmol/L (3.4-5.0); Sodium 134 mmol/L (137-145); Total Protein 7.8 g/dL (6.3-8.2)
[2025-02-28 23:59] LABS: Troponin I < 0.012 ng/mL (0.000-0.034)
[2025-03-01] LABS: INR 1.1; Prothrombin Time 14.6 Seconds (11.1-14.7)
[2025-03-01 00:01] LABS: Partial Thromboplastin Time 30.7 Seconds (22.3-36.8)
[2025-03-01] MEDS: DOXYCYCLINE HYCLATE 100 MG TABLET PO (00:35)
[2025-03-01 00:40] VITALS: BP 137/78; PULSE 86; RESP 20; TEMP 37.1; O2SAT 92
== END 2025-03-01 00:41 | disposition home or self-care (01) ==
PROVIDERS: Emergency Provider Physician Assistant; PCP Family Medicine
DX: J18.9 Pneumonia, unspecified organism (principal); S23.41XA Sprain of ribs, initial encounter; R94.31 Abnormal electrocardiogram [ECG] [EKG]; K76.0 Fatty (change of) liver, not elsewhere classified; K21.9 Gastro-esophageal reflux disease without esophagitis; E78.5 Hyperlipidemia, unspecified; J44.9 Chronic obstructive pulmonary disease, unspecified; I10 Essential (primary) hypertension; X50.0XXA Overexertion from strenuous movement or load, initial encounter
CPT/HCPCS: 36415; 71250; 74176; 80053; 83605; 84484; 85025; 85610; 85730; 93005; 99284; A9270

== ENCOUNTER 2025-05-05 04:15 | Emergency (ER) | payer MEDICARE, SELFPAY ==
--- NOTE | ~2025-05-05 | XR_ITS ---
Examination: XR chest 1V portable Clinical History: dizziness Comparison: Chest x-ray 11/18/2024 Technique: Portable AP Findings: Heart size normal. Lungs clear. No acute bony abnormality. IMPRESSION: 1. No acute cardiopulmonary findings given portable technique. Reviewed, dictated and finalized at location R. R EDITOR
--- NOTE | ~2025-05-05 | CT_ITS ---
CT HEAD NON-CONTRAST Clinical History: dizziness Comparison: CT brain 11/20/2022 Technique: Unenhanced axial images skull base to vertex Coronal, sagittal reformats CT images acquired with automatic exposure control for dose reduction DLP: 681 mGy-cm Findings: Scattered white matter changes, typically chronic microvascular ischemic disease. Sulci, ventricles: Unremarkable. No intracerebral hemorrhage. No evidence acute territorial infarct. No mass effect, midline shift. Bony calvarium intact. Visualized paranasal sinuses: Mild ethmoid disease. Mastoid air cells: Clear. IMPRESSION: 1. No acute intracranial findings. Reviewed, dictated and finalized at location R. STANT READING TEACHER
[2025-05-05 04:38] VITALS: BP 161/74; PULSE 65; RESP 15; O2SAT 98
[2025-05-05 04:45] VITALS: BP 161/74; PULSE 66; PULSE 68; RESP 12; TEMP 36.4; O2SAT 97
--- NOTE | 2025-05-05 04:47 | ECG_ITS ---
Test Date: 2025-05-05 05:25:26 Measurements Intervals [place] Rate: 71 P: 61 WA: 191 QRS: 77 QRSD: 113 T: 64 QT: 418 QTc: 457 Interpretive Statements SINUS RHYTHM WITH OCCASIONAL VENTRICULAR PREMATURE COMPLEXES MODERATE INTRAVENTRICULAR CONDUCTION DELAY [110+ ms QRS DURATION] ABNORMAL ECG Compared to ECG 02/28/2025 18:56:23 Ventricular premature complex(es) now present Electronically Signed On 05-05-2025 07:48:10 LOGISTICS PROJECT MANAGER by Maurice Astorga M.D.
[2025-05-05] MEDS: SODIUM CHLORIDE 0.9% IV 1,000 ML 999 ML IV CONT (05:04)
[2025-05-05] MEDS: PROCHLORPERAZINE EDISYLATE 10 MG/2 ML VIAL IV PUSH (05:04)
[2025-05-05] MEDS: MECLIZINE HCL 25 MG TABLET PO (05:04)
--- NOTE | 2025-05-05 05:10 | PC.NURSE ---
pt taken to scan, will get EKG, urine sample and orthostatic BP's when pt returns.
[2025-05-05 05:13] LABS: Hematocrit 34.6 % (42.0-52.0); Hemoglobin 11.5 g/dL (14.0-18.0); Immature Granulocyte Percent A 0.7 % (0-0.5); Lymphocytes Absolute Auto 1.31 K/mm3 (0.9-3.2); Mean Corpuscular HGB Conc 33.2 g/dl (32-36); Mean Corpuscular Hemoglobin 31.5 pg (26-34); Mean Corpuscular Volume 94.8 fl (80-100); Nucleated Red Blood Cells Absolute Auto 0.000 K/mm3 (0.0-0.012); Nucleated Red Blood Cells Perc 0.0 % (0.0-0.2); Platelet Count Result 203 k/mm3 (150-375); Red Blood Count 3.65 M/mm3 (4.6-6.20); White Blood Count 5.5 K/mm3 (4.5-10.0)
--- NOTE | 2025-05-05 05:14 | ED.GENADULT ---
HPI - General Adult General Chief complaint: Dizziness Stated complaint: Vertigo Time Seen by Provider: 05/05/25 04:41 History of Present Illness HPI narrative: Patient 74-year-old gentleman presents emergency department chief complaint of dizziness and vertigo. The patient states that he started having symptoms around 1:30 a.m. reports that he feels as though the room spinning reports worse very turns head patient reports he did get nauseated and vomited as well the patient states he has had similar symptoms before in the past when he had vertigo and was treated with Antivert Related Data Home Medications ?Medication ?Instructions ?Recorded ?Confirmed ?Last Taken ?Type atorvastatin 20 mg tablet 20 mg PO DAILY 03/04/25 03/24/25 Unknown History Allergies Allergy/AdvReac Type Severity Reaction Status Date / Time No Known Allergies Allergy Verified 05/05/25 04:16 Review of Systems Review of Systems: A 10 system review of systems was completed on the patient and is negative except for what is stated in the HPI. Nursing and ancillary documentation was reviewed. 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 Smoking packs per day: 1 Smoking cigarettes per day: 20.0 Years smoked: 40 Smoking pack-years: 40.00 Smoking status: Former smoker Tobacco type: cigarettes Second hand tobacco smoke exposure: Yes Smoking end date: 04/03/19 Alcohol intake: current Drinks per week: 12 Alcohol use details: beer Substance use: never Substance use type: does not use Lack of Transportation: No Lack of Food: Sometimes True Current Housing: I Have Housing Concerned About Future Housing: No Difficulty Paying Gas/Electric Bills: No Difficulty Paying for Meds: No Currently Unemployed: No Education: High School Diploma/GED Difficulty w/ Childcare or Family Care: No Living arrangements: with family Occupation/Education: occupation 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 HEAD: Normocephalic, atraumatic. EYES: PERRLA and EOMI. ENT: Nares clear, no rhinorrhea or epistaxis. Mucous membranes moist. NECK: Supple. CHEST: Clear to auscultation. No respiratory distress. HEART: Regular rate and rhythm. No murmur heard. Normal peripheral pulses. ABDOMEN: Soft, nontender, nondistended, normal active bowel sounds. EXTREMITIES: Normal range of motion. No edema. SKIN: Warm, dry, no rash. NEURO: No focal deficits. Alert and oriented x3. PSYCH: Normal mood and affect. Course Vital Signs Vital signs: Vital Signs Pulse Rate 65 05/05/25 04:38 Respiratory Rate 15 05/05/25 04:38 Blood Pressure 161/74 H 05/05/25 04:38 Pulse Oximetry 98 05/05/25 04:38 Oxygen Delivery Room Air 05/05/25 04:38 Temperature 36.4 C L 05/05/25 04:45 Pulse Rate 79 05/05/25 05:35 Respiratory Rate 12 05/05/25 04:45 Blood Pressure 161/82 H 05/05/25 05:35 Pulse Oximetry 97 05/05/25 04:45 Oxygen Delivery Room Air 05/05/25 04:38 Medical Decision Making [facility] Narrative Medical decision making narrative: Differential diagnosis includes vertigo, dehydration, electrolyte abnormality, ACS, CVA CT head showed no acute abnormality Patient was treated with antibiotics and Meclizine and fluids troponin was negative Chest x-ray showed no focal infiltrate Vital Signs Vital Signs: Vital Signs Pulse Rate 65 05/05/25 04:38 Respiratory Rate 15 05/05/25 04:38 Blood Pressure 161/74 H 05/05/25 04:38 Pulse Oximetry 98 05/05/25 04:38 Oxygen Delivery Room Air 05/05/25 04:38 Temperature 36.4 C L 05/05/25 04:45 Pulse Rate 79 05/05/25 05:35 Respiratory Rate 12 05/05/25 04:45 Blood Pressure 161/82 H 05/05/25 05:35 Pulse Oximetry 97 05/05/25 04:45 Oxygen Delivery Room Air 05/05/25 04:38 Lab Data 05/05/25 05:07 05/05/25 05:07 Labs: Lab Results 05/05/25 05/05/25 Range/Units 05:07 06:04 WBC 5.5 (4.5-10.0) K/mm3 RBC 3.65 L (4.6-6.20) M/mm3 Hgb 11.5 L (14.0-18.0) g/dL Hct 34.6 L (42.0-52.0) % MCV 94.8 (80-100) fl MCH 31.5 (26-34) pg MCHC 33.2 (32-36) g/dl RDW 14.6 H (11.5-14.5) % Plt Count 203 (150-375) k/mm3 MPV 10.0 (7.4-10.4) fl Immature Gran % (Auto) 0.7 H (0-0.5) % Neut % (Auto) 63.2 (45.5-73.1) % Lymph % (Auto) 23.8 (18.3-44.2) % [place] % (Auto) 10.4 H (2.6-8.5) % Eos % (Auto) 1.5 (0-4.4) % Baso % (Auto) 0.4 (0.2-1.2) % Lymph # (Auto) 1.31 (0.9-3.2) K/mm3 [place] # (Auto) 0.6 (0.1-0.6) K/mm3 Eos # (Auto) 0.1 (0-0.3) K/mm3 Baso # (Auto) 0.0 (0.0-0.1) K/mm3 Abs Immat Gran (auto) 0.04 H (0.00-0.031) K/mm3 Absolute Neuts (auto) 3.5 (1.3-6.7) K/mm3 Absolute Nucleated RBC 0.000 (0.0-0.012) K/mm3 Nucleated RBC % 0.0 (0.0-0.2) % Sodium 134 L (137-145) mmol/L Potassium 3.9 (3.4-5.0) mmol/L Chloride 101 (98-107) mmol/L Carbon Dioxide 27 (22-30) mmol/L Anion Gap 6 (4-12) mmol/L BUN 17 D (9-20) mg/dL Creatinine 0.86 (0.7-1.3) mg/dL Estim Creat Clear Calc 70 ml/min Estimated GFR > 60 (59 - ) Glucose 116 H (65-110) mg/dL Lactic Acid 1.6 (0.7-2.0) mmol/L Calcium 8.6 (8.4-10.2) mg/dL Magnesium 2.1 (1.6-2.3) mg/dL Total Bilirubin 0.5 (0.2-1.3) mg/dL AST 24 (17-59) U/L ALT 23 (6-50) U/L Alkaline Phosphatase 83 (38-126) U/L Troponin I < 0.012 (0.000-0.034) ng/mL Total Protein 7.0 (6.3-8.2) g/dL Albumin 4.2 (3.5-5.1) g/dL Urine Color Yellow (Yellow) Urine Appearance Clear (Clear) Urine pH 6.5 (5.0-9.0) Ur Specific [place] 1.011 (1.001-1.035) Urine Protein Negative (Negative) mg/dL Urine Glucose (UA) Negative (Negative) mg/dL Urine Ketones Negative (Negative) mg/dL Ur Blood (Man) Negative (Negative) Urine Nitrate Negative (Negative) Urine Bilirubin Negative (Negative) Urine Urobilinogen 0.2 (<2.0) mg/dL Leukocyte Esterase Rfl Negative (Negative) LITA/UL Discharge Plan Discharge Clinical Impression: Vertigo Patient Disposition: Home Condition: Stable Instructions: Antibiotic Form, Vertigo (ED) Patient Language: Belarusian Prescriptions: New meclizine 25 mg tablet 25 mg PO TID PRN (Reason: dizziness) Qty: 30 0RF No Action (DME) Nebulizer See Rx Instructions .Route .MEDSUPPLY Qty: 1 0RF Rx Instructions: As directed atorvastatin 20 mg tablet 20 mg PO DAILY budesonide-formoterol [Symbicort] 160-4.5 mcg/actuation HFA aerosol inhaler 2 puff inhalation Q12H Qty: 10.2 2RF albuterol sulfate 2.5 mg /3 mL (0.083 %) solution for nebulization 2.5 mg inhalation Q4-6H PRN (Reason: shortness of breath or wheezing) Qty: 180 1RF albuterol sulfate 90 mcg/actuation HFA aerosol inhaler 1 inh inhalation Q4-6H PRN (Reason: shortness of breath or wheezing) Qty: 18 5RF lisinopril-hydrochlorothiazide 20-25 mg tablet 0.5 tablet PO DAILY Qty: 90 1RF Follow-up/Referrals: Seda Ham DO [Primary Care Provider, [facility]] Time of Disposition: 06:50
[2025-05-05 05:23] LABS: Alanine Aminotransferase 23 U/L (6-50); Albumin Level 4.2 g/dL (3.5-5.1); Alkaline Phosphatase 83 U/L (38-126); Anion Gap 6 mmol/L (4-12); Aspartate Amino Transferase 24 U/L (17-59); Bilirubin,Total 0.5 mg/dL (0.2-1.3); Blood Urea Nitrogen 17 mg/dL (9-20); Calcium 8.6 mg/dL (8.4-10.2); Carbon Dioxide 27 mmol/L (22-30); Chloride 101 mmol/L (98-107); Estimated CRCL calculation 70 ml/min; Estimated Glomerular Filt Rate > 60; Glucose 116 mg/dL (65-110); Magnesium 2.1 mg/dL (1.6-2.3); Potassium 3.9 mmol/L (3.4-5.0); Sodium 134 mmol/L (137-145); Total Protein 7.0 g/dL (6.3-8.2)
[2025-05-05 05:31] VITALS: BP 163/83; PULSE 76
[2025-05-05 05:33] VITALS: BP 182/90; PULSE 85
[2025-05-05 05:35] VITALS: BP 161/82; PULSE 79
[2025-05-05 05:37] LABS: Troponin I < 0.012 ng/mL (0.000-0.034)
--- OUTSIDE RECORDS SUMMARY | 2025-05-05 05:41 | XMS_ITS | Clinical Summary ---
Author Organization [facility] Address [address] [place] [address] Care Team Providers Care Turntable Engineer Name Role Phone Unavailable Primary Care Provider [...] Encounters Date Type Department Care Team Description 04/06/2025 External Device Data ST[facility] ABSTRACTION Provider, Abstract 03/23/2025 External Device Data [facility] ABSTRACTION Provider, Abstract 03/02/2025 External Device Data ST[facility] ABSTRACTION Provider, Abstract 02/23/2025 External Device Data ST[facility] ABSTRACTION Provider, Abstract 02/16/2025 External Device Data STL ABSTRACTION Provider, Abstract from Last 3 Months Family History Medical History Relation Name Comments Diabetes Daughter sean No Known Problems Father Diabetes Mother No Known Problems Sister 1 [place] No Known Problems Sister 2 carlyle No Known Problems Son 1 Abdullahi No Known Problems Son 2 kevyn No Known Problems Son 3 pres[place] No Known Problems Son 4 opal No Known Problems Son 5 marzena No Known Problems Son 6 renata Relation Name Status Comments Daughter sean Father Mother Sister 1 [place] Sister 2 carlyle Son 1 Abdullahi Alive [...] Flex Sig/CT Colonography Q 5 years 1994 PNEUMOCOCCAL VACCINE 50+ YEARS (1 of 1 - PCV) 11/20/19 00 ZOSTER VACCINE (1 of 2) 11/20/1999 RSV VACCINE (60+ or ) (1 - 1-dose 75+ series) 2024 INFLUENZA VACCINE (#1) 2025 Insurance [facility]
--- OUTSIDE RECORDS SUMMARY | 2025-05-05 05:41 | XMS_ITS | Clinical Summary ---
Author Organization [facility] Address [address] [place] [id number] Care Team Providers Care Tyre Retreader Name Role Phone Unavailable Primary Care Provider Unavailabl e Allergies No known active allergies Medications No known medications Social History Tobacco Use Types Packs/Day Years Used Date Smoking Tobacco: Former Cigarettes Smokeless Tobacco: Never Tobacco Cessation:Counseling Given: Not Answered Alcohol Use Standard Drinks/Week Comments Yes 41.7 (1 standard drink = 0.6 oz pure alcohol) Sex and Gender Information Value Date Recorded Sex Assigned at Not on file Legal Sex Male 10:11 AM CDT Gender Identity Not on file Sexual Orientation Not on file Last Filed Vital Signs Vital Sign Reading Time Taken Comments Blood Pressure - - Pulse - - Temperature - - Respiratory Rate - - Oxygen Saturation - - Inhaled Oxygen Concentration - - Weight 95.3 kg (210 lb) 03/05/2024 12:37 PM CDT Height 180.3 cm (5' 11) 03/05/2024 12:37 PM CDT Body Mass Index 29.29 03/05/2024 12:37 PM CDT Plan of Treatment Health Maintenance Due Date Last Done Comments Colorectal Cancer Screening Colonoscopy (10 Years) 1949 Hepatitis C 11/20/1967 DTaP, Tdap and Td Vaccines ( 1 - Tdap) 1968 Pneumococcal Vaccine: 50+ Ye ars (1 of 1 - PCV) 11/20/1999 Zoster Vaccines (1 of 2) 11/20/1999 Annual Medicare Wellness Visit 2014 RSV Immunization or 60+ Years (1 - 1-dose 75+ series) 2024 COVID-19 Vaccine ( - 2024-2 6 season) 2025 Influenza Adult (#1) 2025 Hepatitis A Vaccines Aged Out No long er eligible based on patient's age to complete this topic Meningococcal B Vaccine Aged Out No l onger eligible based on patient's age to complete this topic Meningococcal Vaccine Aged Out No twan quentin eligible based on patient's age to complete this topic RSV Immunizations Under 20 Months Aged Out No longer eligible based on patient's age to complete this topic Insurance [employer]
[2025-05-05 06:11] LABS: Add Urine Microscopic? NO; Appearance Urine Clear (Clear); Glucose Urine UA Negative (Negative); Leukocyte Esterase Ur Negative LEU/UL (Negative); Nitrate Urine Negative (Negative); Specific Grav Ur 1.011 (1.001-1.035)
[2025-05-05 07:14] VITALS: BP 160/79; PULSE 69; RESP 17; O2SAT 96
== END 2025-05-05 07:17 | disposition home or self-care (01) ==
PROVIDERS: Emergency Provider Emergency Medicine; PCP Family Medicine
DX: R42 Dizziness and giddiness (principal); K21.9 Gastro-esophageal reflux disease without esophagitis; E78.5 Hyperlipidemia, unspecified; I10 Essential (primary) hypertension; J44.9 Chronic obstructive pulmonary disease, unspecified; Z87.891 Personal history of nicotine dependence
CPT/HCPCS: 36415; 70450; 71045; 80053; 81003; 83605; 83735; 84484; 85025; 93005; 96361; 96374; 99284; A9270; J0780; J7030